=== PATIENT | female | born 1940 | race American Indian/Alaskan Native ===

== ENCOUNTER 2017-01-26 18:27 | Emergency (ER) | payer MEDICARE, OTHER ==
[2017-01-26 18:28] VITALS: BMI 33.0
[2017-01-26 21:50] LABS: BASO % 0.4 % (0.0-2.0); EOS # 0.1 K/uL (0.0-0.7); EOS % 2.3 % (0.0-4.0); HEMATOCRIT 34.9 % (34.0-47.0); LYMPH # 2.5 K/uL (1.0-4.3); LYMPH % 46.6 % (20.0-40.0); MEAN CELL VOLUME 98.1 fL (81.0-99.0); MEAN CORPUSCULAR HEMOGLOBIN 32.6 pg (27.0-31.0); MEAN CORPUSCULAR HGB CONC 33.2 g/dL (33.0-37.0); MEAN PLATELET VOLUME 8.7 fL (7.2-11.7); MONO # 0.8 K/uL (0.0-0.8); MONO % 14.8 % (0.0-10.0); RED CELL DISTRIBUTION WIDTH 14.3 % (11.5-14.5); WHITE BLOOD COUNT 5.4 K/uL (4.8-10.8)
[2017-01-26 21:55] LABS: RBC URINE 1 /hpf (0-3); URINE BILIRUBIN NEGATIVE (NEGATIVE); URINE BLOOD NEGATIVE (NEGATIVE); URINE COLOR Yellow (YELLOW); URINE GLUCOSE (UA) NORMAL (Normal); URINE KETONE NEGATIVE (NEGATIVE); URINE LEUKOCYTE ESTERASE TRACE Leu/uL (Negative); URINE PROTEIN NEGATIVE (NEGATIVE); URINE UROBILINOGEN NORMAL mg/dL (0.2-1.0); WBC URINE < 1 /hpf (0-5)
[2017-01-26 21:57] LABS: INR 1.1
[2017-01-26 22:17] LABS: CHLORIDE 101 mmol/L (98-107)
[2017-01-26 22:18] LABS: POTASSIUM 3.9 mmol/L (3.6-5.2); SODIUM 138 mmol/L (132-148)
[2017-01-26 22:20] LABS: BILIRUBIN,TOTAL 0.5 mg/dL (0.2-1.3); CARBON DIOXIDE 30 mmol/L (22-30); CHOLESTEROL 170 mg/dL (0-199); GFR AFRICAN-AMERICAN > 60; TOTAL PROTEIN 7.1 g/dL (6.3-8.3)
[2017-01-26 22:21] LABS: ALKALINE PHOSPHATASE 76 U/L (38-126); ALT/SGPT 31 U/L (9-52); AST/SGOT 37 U/L (14-36); BLOOD UREA NITROGEN 15 mg/dL (7-17); CALCIUM 9.3 mg/dl (8.6-10.4); GLUCOSE,RANDOM 81 mg/dL (65-105)
--- NOTE | 2017-01-26 22:32 | C.PDOC ---
History Of Present Illness 76 year old female presents to the ED with complaints of dizziness for two days who has had multiple prior evaluations for similar complaints. Patient denies taking any dizziness medications at home, vertigo, or vomiting. Time Seen by Provider: 01/26/17 21:30 Chief Complaint (Nursing): Dizziness/Lightheaded History Per: Patient History/Exam Limitations: no limitations Onset/Duration Of Symptoms: Days (2 days ) Current Symptoms Are (Timing): Still Present Associated Symptoms Preceding Syncopal Episode: denies: Vertigo Seizure Or Post-ictal Symptoms: None Possible Causative Factor(s): denies: Vertigo Fall Associated With With Symptoms: No Recent travel outside of the [place]: No Additional History Per: Prior Records Past Medical History Reviewed: Historical Data, Nursing Documentation, Vital Signs Vital Signs: Last Vital Signs Temp 98.1 F 01/26/17 23:45 Pulse 64 01/26/17 23:45 Resp 15 01/26/17 23:45 BP 126/63 01/26/17 23:45 Pulse Ox 95 01/26/17 23:45 - Medical History PMH: Anxiety, Arthritis, CAD, Depression, Diabetes, Gastritis, Gastrointestinal Ulcer, Hiatal Hernia, HTN, Hypercholesterolemia Surgical History: Cholecystectomy, Coronary Stent, Endoscopy - [facility] Procedures ESOPHAGOGASTRODUODENOSCOPY [EGD] W/CLOSED BIOPSY (03/05/14) OTHER SKIN & SUBQ I D (08/25/14) Family History: States: Unknown Family Hx - Social History Hx Tobacco Use: No Hx Alcohol Use: No Hx Substance Use: No - Immunization History Hx Tetanus Toxoid Vaccination: No Hx Influenza Vaccination: No Hx Pneumococcal Vaccination: No Review Of Systems Constitutional: Negative for: Fever, Chills, Sweats Eyes: Negative for: Vision Change Cardiovascular: Negative for: Chest Pain, Palpitations Gastrointestinal: Negative for: Nausea, Vomiting, Abdominal Pain, Diarrhea Neurological: Positive for: Dizziness. Negative for: Weakness, Numbness, Headache Physical Exam - Physical Exam Appears: Non-toxic, No Acute Distress Skin: Warm, Dry Head: Atraumatic, Other (no provoked dizziness with head movement ) Eye(s): bilateral: Normal Inspection, PERRL, EOMI Oral Mucosa: Moist Neck: Supple Chest: Symmetrical Cardiovascular: Rhythm Regular Respiratory: No Rales, No Rhonchi, No Stridor, No Wheezing Gastrointestinal/Abdominal: Soft, No Tenderness, No Distention, No Guarding, No Rebound Extremity: Normal ROM, No Tenderness Neurological/Psych: Oriented x3 ED Course And Treatment - Laboratory Results Result Diagrams: 01/26/17 21:46 01/26/17 21:46 Lab Interpretation: Normal (trop, UA neg.) ECG: Interpreted By Me ECG Rhythm: Sinus Rhythm ECG Interpretation: Normal Rate From EC O2 Sat by Pulse Oximetry: 96 (room air ) - Radiology CXR: Interpreted by Me CXR Interpretation: Yes: No Acute Disease - Other Rad head CT X-Ray: Interpreted by Me (no acute findings.), Read By Radiologist Progress Note: meclizine and IV fluids Reevaluation Time: 23:59 Reassessment Condition: Improved Medical Decision Making Medical Decision Making: mild dizzines, non-vertiginous continue meclizine PRN and neuro f/u. Disposition Doctor Will See Patient In The: Office Counseled Patient/Family Regarding: Studies Performed, Diagnosis - Disposition Disposition: HOME/ ROUTINE Disposition Time: 00:00 Condition: GOOD - Clinical Impression Clinical Impression: Dizziness - Scribe Statement The provider has reviewed the documentation as recorded by the Scribe Kim Varner All medical record entries made by the Elizaibnav were at my direction and personally dictated by me. I have reviewed the chart and agree that the record accurately reflects my personal performance of the history, physical exam, medical decision making, and the department course for this patient. I have also personally directed, reviewed, and agree with the discharge instructions and disposition.
--- NOTE | 2017-01-26 23:12 | CT ---
EXAM: CT Head Without Intravenous Contrast CLINICAL HISTORY: 76 years old, female; Pain; Headache; Additional info: Hand/dizzy x 2 days, ? vertebral TECHNIQUE: Axial computed tomography images of the head/brain without intravenous contrast. This CT exam was performed using one or more of the following dose reduction techniques: automated exposure control, adjustment of the mA and/or kV according to patient size, and/or use of iterative reconstruction technique. COMPARISON: No relevant prior studies available. FINDINGS: Brain: There is mild diminished density of the white matter bilaterally, consistent with mild microangiopathy. There is no evidence of intracranial hemorrhage. No evidence of acute territorial infarction. No edema. Ventricles: Unremarkable. No ventriculomegaly. Bones/joints: Unremarkable. No acute fracture. Soft tissues: Unremarkable. Sinuses: Unremarkable as visualized. No acute sinusitis. Mastoid air cells: Unremarkable as visualized. No mastoid effusion. IMPRESSION: 1. No evidence for acute intracranial abnormality or displaced calvarial fracture. 2. Additional incidental and/or chronic findings as described.
[2017-01-26 23:46] VITALS: BP 126/63; PULSE 64; RESP 15; TEMP 98.1
[2017-01-27 00:01] VITALS: O2SAT 96
--- NOTE | 2017-01-27 13:59 | RAD ---
HISTORY: dizzy COMPARISON: 09/15/2016 FINDINGS: LUNGS: No active pulmonary disease. PLEURA: No significant pleural effusion identified, no pneumothorax apparent. CARDIOVASCULAR: Normal. OSSEOUS STRUCTURES: No significant abnormalities. VISUALIZED UPPER ABDOMEN: Normal. OTHER FINDINGS: None. IMPRESSION: No active disease.
== END 2017-01-27 00:10 | disposition home or self-care (01) ==
LOC: C.ER 18:27
DX: R42 Dizziness and giddiness (principal); I25.10 Atherosclerotic heart disease of native coronary artery without angina pectoris; I10 Essential (primary) hypertension; E11.9 Type 2 diabetes mellitus without complications

== ENCOUNTER 2017-03-01 08:10 | Emergency (ER) | payer MEDICARE, OTHER ==
[2017-03-01 08:19] VITALS: BMI 35.5
[2017-03-01 08:32] VITALS: TEMP 97.4
[2017-03-01 09:07] LABS: RBC URINE 1 /hpf (0-3); URINE BACTERIA RARE (<OCC); URINE BILIRUBIN NEGATIVE (NEGATIVE); URINE BLOOD NEGATIVE (NEGATIVE); URINE COLOR Yellow (YELLOW); URINE GLUCOSE (UA) NORMAL (Normal); URINE KETONE NEGATIVE (NEGATIVE); URINE PROTEIN NEGATIVE (NEGATIVE); URINE UROBILINOGEN NORMAL mg/dL (0.2-1.0); WBC URINE 5 /hpf (0-5)
[2017-03-01 09:09] LABS: EOS # 0.1 K/uL (0.0-0.7); EOS % 1.9 % (0.0-4.0); HEMATOCRIT 33.5 % (34.0-47.0); LYMPH # 2.2 K/uL (1.0-4.3); LYMPH % 44.8 % (20.0-40.0); MONO # 0.9 K/uL (0.0-0.8); MONO % 17.3 % (0.0-10.0); NRBC % 0.1 % (0.0-2.0); RED CELL DISTRIBUTION WIDTH 14.3 % (11.5-14.5); WHITE BLOOD COUNT 4.9 K/uL (4.8-10.8)
[2017-03-01 09:10] LABS: URINE LEUKOCYTE ESTERASE 1+ Leu/uL (Negative)
[2017-03-01 09:16] LABS: CHLORIDE 99 mmol/L (98-107)
[2017-03-01 09:17] LABS: INR 1.1; POTASSIUM 4.2 mmol/L (3.6-5.2); SODIUM 139 mmol/L (132-148)
[2017-03-01 09:18] LABS: GFR AFRICAN-AMERICAN > 60
[2017-03-01 09:19] LABS: ALB/GLOB RATIO 1.1 (1.0-2.1); ALKALINE PHOSPHATASE 71 U/L (38-126); ALT/SGPT 42 U/L (9-52); AST/SGOT 30 U/L (14-36); BILIRUBIN,TOTAL 0.5 mg/dL (0.2-1.3); BLOOD UREA NITROGEN 18 mg/dL (7-17); CARBON DIOXIDE 29 mmol/L (22-30); GLUCOSE,RANDOM 81 mg/dL (65-105); TOTAL PROTEIN 6.8 g/dL (6.3-8.3)
[2017-03-01 09:20] LABS: CALCIUM 8.7 mg/dl (8.6-10.4)
--- NOTE | 2017-03-01 09:29 | C.PDOC ---
History Of Present Illness 76 y/o female, with PMHx of HTN, diabetes, hyperlipidemia, presents to the ED for evaluation of generalized body aches, and mild dizziness since last night. Pt has been evaluated here multiple times in the past with similar complaints. Otherwise, denies any specific pain, nausea, vomiting, headache, fever, or any other complaints at this time. Time Seen by Provider: 03/01/17 08:38 Chief Complaint (Nursing): Back Pain History Per: Patient History/Exam Limitations: no limitations Onset/Duration Of Symptoms: Days (1) Current Symptoms Are (Timing): Still Present Quality Of Discomfort: Aching Previous Symptoms: None Associated Symptoms: None. denies: New Weakness, New Numbness Exacerbating Factor(s): Nothing Recent travel outside of the [place]: No Additional History Per: Patient Past Medical History Reviewed: Historical Data, Nursing Documentation, Vital Signs Vital Signs: Last Vital Signs Temp 97.4 F L 03/01/17 08:28 Pulse 73 03/01/17 09:56 Resp 20 03/01/17 09:56 BP 123/64 03/01/17 09:56 Pulse Ox 98 03/01/17 09:56 - Medical History PMH: Anxiety, Arthritis, CAD, Depression, Diabetes, Gastritis, Gastrointestinal Ulcer, Hiatal Hernia, HTN, Hypercholesterolemia, Pneumonia Denies: Chronic Kidney Disease Surgical History: Cholecystectomy, Coronary Stent, Endoscopy - [facility] Procedures ESOPHAGOGASTRODUODENOSCOPY [EGD] W/CLOSED BIOPSY (03/05/14) OTHER SKIN & SUBQ I D (08/25/14) Family History: States: Unknown Family Hx - Social History Hx Tobacco Use: No Hx Alcohol Use: No Hx Substance Use: No - Immunization History Hx Tetanus Toxoid Vaccination: No Hx Influenza Vaccination: No Hx Pneumococcal Vaccination: No Review Of Systems Except As Marked, All Systems Reviewed And Found Negative. Constitutional: Positive for: Other (generalized body aches). Negative for: Fever, Chills Eyes: Negative for: Vision Change Cardiovascular: Negative for: Chest Pain Respiratory: Negative for: Shortness of Breath Gastrointestinal: Negative for: Nausea, Vomiting, Abdominal Pain Skin: Negative for: Rash Neurological: Positive for: Dizziness. Negative for: Weakness, Numbness, Headache Physical Exam - Physical Exam Appears: Non-toxic, No Acute Distress Skin: Normal Color, Warm, Dry Head: Atraumatic, Normacephalic Eye(s): bilateral: Normal Inspection, PERRL, EOMI Cardiovascular: Rhythm Regular, No Murmur Respiratory: Normal Breath Sounds, No Rales, No Rhonchi, No Wheezing Gastrointestinal/Abdominal: Soft, No Tenderness Extremity: Bilateral: Atraumatic, Normal ROM Neurological/Psych: Oriented x3, Normal Speech, Normal Cognition, Other (Neuro intact) ED Course And Treatment - Laboratory Results Result Diagrams: 03/01/17 09:05 03/01/17 09:05 ECG: Interpreted By Me, Viewed By Me ECG Rhythm: Sinus Rhythm ECG Interpretation: No Acute Changes Interpretation Of ECG: No ST wave changes. Rate From EC (bpm) O2 Sat by Pulse Oximetry: 100 (RA) Pulse Ox Interpretation: Normal Medical Decision Making Medical Decision Making: r/o cardiac, metabolic, infectious etiology -EKG, CXR, blood work, urinalysis ordered and reviewed. Pt was given Toradol. On reassessment, pt is sleeping comfortably, no acute distress. Lab work was unremarkable. Pt feels comfortable being discharged home. cxr neg as read by me. pt katt rojas nad, neuro intact. stable for d/c. Disposition - Disposition Disposition: HOME/ ROUTINE Disposition Time: 10:00 Condition: STABLE Additional Instructions: please follow up with your doctor return to er with worsening symptoms or concerns. Instructions: Weakness (ED) Forms: [facility] (Polish) - Clinical Impression Clinical Impression: Weakness - Scribe Statement The provider has reviewed the documentation as recorded by the Scribe Karl Rome All medical record entries made by the Scribe were at my direction and personally dictated by me. I have reviewed the chart and agree that the record accurately reflects my personal performance of the history, physical exam, medical decision making, and the department course for this patient. I have also personally directed, reviewed, and agree with the discharge instructions and disposition.
[2017-03-01 09:57] VITALS: BP 123/64; PULSE 73; RESP 20
--- NOTE | 2017-03-01 11:08 | RAD ---
PROCEDURE: CHEST RADIOGRAPH, 1 VIEW HISTORY: Chest pain COMPARISON: 01/26/2017 FINDINGS: LUNGS: The lungs are well inflated and clear. PLEURA: No pneumothorax or pleural fluid seen. CARDIOVASCULAR: The heart is normal in size. Atherosclerotic aortic arch calcifications are present. . OSSEOUS STRUCTURES: There is severe dextroscoliosis in the thoracic spine. VISUALIZED UPPER ABDOMEN: Normal. OTHER FINDINGS: None. IMPRESSION: No active pulmonary number disease.
[2017-03-01 12:01] VITALS: O2SAT 100
--- NOTE | 2017-03-04 06:44 | CARD ---
APPROVED REPORT EKG Measurement Heart [id number] <Conclusion> Normal sinus rhythm Normal ECG
== END 2017-03-01 10:11 | disposition home or self-care (01) ==
LOC: C.ER 08:10
DX: R53.1 Weakness (principal)
CPT/HCPCS: 71010; 80053; 81001; 82948; 83690; 84484; 85025; 85610; 85730; 93005; 96374; 99285; J1885

== ENCOUNTER 2017-04-20 12:36 | Emergency (ER) | payer MEDICARE, OTHER ==
[2017-04-20 12:36] VITALS: BMI 35.5
[2017-04-20 12:57] VITALS: RESP 18; O2SAT 99
[2017-04-20] MEDS ORDERED: Lidocaine 5% Patch TD STA (13:59)
[2017-04-20] MEDS ORDERED: Aluminum Hydroxide/Magnesium Hydroxide Susp (30 mL) PO STA (14:00)
--- NOTE | 2017-04-20 14:04 | C.PDOC ---
History Of Present Illness 76 year old female with HTN and diabetes presents to the ED with complaints of "pain all over" for approximately four weeks. As per patient's daughter, patient had an MRI of the right shoulder performed on March 22, 2017 for right shoulder pain that showed a tear. Patient was prescribed medications but is unclear about what specific medications. She has taken ibuprofen with no relief and has not taken medication today. Patient denies injury, chest pain, or shortness of breath. Pain mainly to right shoulder, radiating up to neck. Pain with movement, turning neck. Time Seen by Provider: 04/20/17 13:33 Chief Complaint (Nursing): Pain, Chronic History Per: Patient, Family (daughter) History/Exam Limitations: no limitations Onset/Duration Of Symptoms: Persistent (4 weeks ) Current Symptoms Are (Timing): Still Present Reports Recently: Treated By A Physician Recent travel outside of the [place]: No Past Medical History Reviewed: Historical Data, Nursing Documentation, Vital Signs Vital Signs: Last Vital Signs Temp 97.9 F 04/20/17 12:56 Pulse 70 04/20/17 12:56 Resp 18 04/20/17 12:56 BP 139/84 04/20/17 12:56 Pulse Ox 99 04/20/17 15:39 - Medical History PMH: Anxiety, Arthritis, CAD, Depression, Diabetes, Gastritis, Gastrointestinal Ulcer, Hiatal Hernia, HTN, Hypercholesterolemia, Pneumonia Surgical History: Cholecystectomy, Coronary Stent, Endoscopy - [facility] Procedures ESOPHAGOGASTRODUODENOSCOPY [EGD] W/CLOSED BIOPSY (03/05/14) OTHER SKIN & SUBQ I D (08/25/14) Family History: States: Unknown Family Hx - Social History Hx Tobacco Use: No Hx Alcohol Use: No Hx Substance Use: No - Immunization History Hx Tetanus Toxoid Vaccination: No Hx Influenza Vaccination: No Hx Pneumococcal Vaccination: No Review Of Systems Constitutional: Negative for: Fever, Chills Cardiovascular: Negative for: Chest Pain, Palpitations Respiratory: Negative for: Cough, Shortness of Breath Gastrointestinal: Negative for: Nausea, Vomiting, Abdominal Pain, Diarrhea Musculoskeletal: Positive for: Neck Pain, Shoulder Pain (right shoulder pain radiating to right side of neck and back ), Back Pain Neurological: Negative for: Numbness Physical Exam - Physical Exam Appears: Non-toxic, No Acute Distress Skin: Warm, Dry Head: Atraumatic, Normacephalic Oral Mucosa: Moist Neck: Supple Chest: Symmetrical, No Deformity Cardiovascular: Rhythm Regular, No Murmur Respiratory: Normal Breath Sounds, No Rales, No Rhonchi, No Wheezing Back: Muscle Spasm (spasmodic to anterior and posterior area of right shoulder and trapezius muscle ) Extremity: Normal ROM, Tenderness (Tenderness along trapezius muscle ), Capillary Refill (good capillary refill, less than two seconds ), No Deformity Neurological/Psych: Oriented x3 ED Course And Treatment O2 Sat by Pulse Oximetry: 99 (room air ) Progress Note: Patient was given Tylenol, Motrin, Valium, and Lidoderm was applied. Medical Decision Making Medical Decision Making: Patient presented MR report of right shoulder performed on 04/01/[address] Jaci Barkley. Impression is as follows: "1. Full-thickness tear of the distal supraspinatus with myotendinous retraction to the proximal humeral head and moderate muscle atrophy. 2. Moderate glenohumeral arthropathy with accompanying synovitis. 3. 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 Prescriptions: diaZEpam [Valium] 5 mg PO TID #9 tab Lidocaine 5% [Lidoderm] 1 ea TD DAILY #2 patch traMADol [Ultram] 25 mg PO STAT #9 tab Instructions: Muscle Spasm (ED) Forms: [facility] (Mauritian) - POA Present On Arrival: None - Clinical Impression Clinical Impression: Muscle spasm - Scribe Statement The provider has reviewed the documentation as recorded by the Scribnav Varner All medical record entries made by the Scribe were at my direction and personally dictated by me. I have reviewed the chart and agree that the record accurately reflects my personal performance of the history, physical exam, medical decision making, and the department course for this patient. I have also personally directed, reviewed, and agree with the discharge instructions and disposition.
[2017-04-20] MEDS ORDERED: Lidocaine 5% Patch TD ONE (14:05)
[2017-04-20] MEDS ORDERED: Aluminum Hydroxide/Magnesium Hydroxide Susp (30 mL) ONE (14:06)
[2017-04-20 16:46] VITALS: BP 142/85; PULSE 60; TEMP 97.7
== END 2017-04-20 16:59 | disposition home or self-care (01) ==
LOC: C.ER 12:36
DX: M62.838 Other muscle spasm (principal)

== ENCOUNTER 2017-08-07 15:23 | Observation (INO) | payer OTHER ==
[2017-08-07 15:23] VITALS: BMI 35.5
--- NOTE | 2017-08-07 16:15 | C.PDOC ---
History Of Present Illness 76 year old female presents to the ED for evaluation of chest pain which began yesterday. Patient states her pain has slightly improved since yesterday, but notes she still has pain and would like to be evaluated. Patient has cardiac history and underwent angioplasty. She denies shortness of breath, cough, nausea , vomiting, extremity numbness/weakness. PMD: Dr. Barkley Time Seen by Provider: 08/07/17 15:48 Chief Complaint (Nursing): Chest Pain History Per: Patient History/Exam Limitations: no limitations Onset/Duration Of Symptoms: Hrs Current Symptoms Are (Timing): Better Quality: "Pain" Associated Symptoms: denies: Nausea Additional History Per: Patient Past Medical History Reviewed: Historical Data, Nursing Documentation, Vital Signs Vital Signs: Last Vital Signs Temp 98.5 F 08/07/17 15:37 Pulse 62 08/07/17 17:58 Resp 20 08/07/17 17:58 BP 140/70 08/07/17 17:58 Pulse Ox 98 08/07/17 18:36 - Medical History PMH: Anxiety, Arthritis, CAD, Depression, Diabetes, Gastritis, Gastrointestinal Ulcer, Hiatal Hernia, HTN, Hypercholesterolemia, Pneumonia Denies: Chronic Kidney Disease Surgical History: Cholecystectomy, Coronary Stent, Endoscopy - [facility] Procedures ESOPHAGOGASTRODUODENOSCOPY [EGD] W/CLOSED BIOPSY (03/05/14) OTHER SKIN & SUBQ I D (08/25/14) Family History: States: Unknown Family Hx - Social History Hx Tobacco Use: No Hx Alcohol Use: No Hx Substance Use: No - Immunization History Hx Tetanus Toxoid Vaccination: No Hx Influenza Vaccination: No Hx Pneumococcal Vaccination: No Review Of Systems Cardiovascular: Positive for: Chest Pain Respiratory: Negative for: Cough, Shortness of Breath Gastrointestinal: Negative for: Nausea, Vomiting Neurological: Negative for: Weakness, Numbness Physical Exam - Physical Exam Appears: Non-toxic, No Acute Distress Skin: Normal Color, Warm, Dry Head: Atraumatic, Normacephalic Eye(s): bilateral: Normal Inspection Oral Mucosa: Moist Throat: Normal, No Erythema, No Exudate Neck: Supple Chest: Symmetrical, No Deformity, No Tenderness Cardiovascular: Rhythm Regular, No Murmur Respiratory: Normal Breath Sounds, No Rales, No Rhonchi, No Wheezing Extremity: Normal ROM, Capillary Refill (less than 2 seconds ) Neurological/Psych: Oriented x3, Normal Speech, Normal Cognition Gait: Steady ED Course And Treatment - Laboratory Results Result Diagrams: 08/07/17 16:32 08/07/17 16:32 ECG: Interpreted By Me, Viewed By Me ECG Rhythm: Sinus Rhythm Interpretation Of ECG: Sinus rhythm at rate 80bpm. Diffuse ST changes noted. Rate From EC O2 Sat by Pulse Oximetry: 98 (on RA) Pulse Ox Interpretation: Normal Progress Note: Bloodwork, Urinalysis, CXR, and EKG ordered and reviewed. Aspirin PO administered. Called at 18:10 - service give cell phone number to call: no answer,. Called at 18:35 - no answer. Called 's cell phone at 18:40, ask us to call him back in 5 min. Spoke with who requested to admit patient to . Spoke with , who accepted patient to Tele for observation. Disposition - Disposition Disposition: HOSPITALIZED Disposition Time: 18:45 Condition: FAIR Forms: Circular (Cymraes) - Clinical Impression Clinical Impression: Chest pain - PA / PRINCIPAL SYSTEM SOFTWARE ENGINEER / Resident Statement MD/DO has reviewed & agrees with the documentation as recorded. - Scribe Statement The provider has reviewed the documentation as recorded by the Scribe (Shey Rome) All medical record entries made by the Scribe were at my direction and personally dictated by me. I have reviewed the chart and agree that the record accurately reflects my personal performance of the history, physical exam, medical decision making, and the department course for this patient. I have also personally directed, reviewed, and agree with the discharge instructions and disposition. Decision To Admit - Pt Status Changed To: Hospital Disposition Of: Observation - . Bed Request Type: Telemetry Admitting Physician: Jacques Beth Patient Diagnosis: Chest pain
[2017-08-07 16:48] LABS: BASO % 0.5 % (0.0-2.0); EOS # 0.1 K/uL (0.0-0.7); EOS % 1.2 % (0.0-4.0); HEMOGLOBIN 11.5 g/dL (11.0-16.0); LYMPH # 2.1 K/uL (1.0-4.3); LYMPH % 39.4 % (20.0-40.0); MEAN CORPUSCULAR HEMOGLOBIN 31.9 pg (27.0-31.0); MEAN CORPUSCULAR HGB CONC 32.2 g/dL (33.0-37.0); MONO # 0.6 K/uL (0.0-0.8); MONO % 10.6 % (0.0-10.0); NEUT # 2.5 K/uL (1.8-7.0); NEUT % 48.3 % (50.0-75.0); NRBC % 0.2 % (0.0-2.0); RBC 3.62 Mil/uL (3.80-5.20); RED CELL DISTRIBUTION WIDTH 15.6 % (11.5-14.5); WHITE BLOOD COUNT 5.2 K/uL (4.8-10.8)
[2017-08-07 16:54] LABS: INR 1.1; PROTHROMBIN TIME 12.8 SECONDS (9.7-12.2)
--- NOTE | 2017-08-07 16:56 | RAD ---
PROCEDURE: CHEST RADIOGRAPH, 1 VIEW HISTORY: CP COMPARISON: 03/01/2017 FINDINGS: LUNGS: Clear. PLEURA: No pneumothorax or pleural fluid seen. CARDIOVASCULAR: Normal. OSSEOUS STRUCTURES: No significant abnormalities. VISUALIZED UPPER ABDOMEN: Normal. OTHER FINDINGS: None. IMPRESSION: No active disease.
[2017-08-07 17:07] LABS: ALB/GLOB RATIO 1.1 (1.0-2.1); ALBUMIN 3.6 g/dL (3.5-5.0); ALT/SGPT 35 U/L (9-52); AST/SGOT 34 U/L (14-36); BLOOD UREA NITROGEN 17 mg/dL (7-17); CALCIUM 8.2 mg/dl (8.6-10.4); GFR AFRICAN-AMERICAN > 60; GFR NON-AFRICAN AMERICAN > 60
[2017-08-07 17:15] LABS: CK-MB 0.88 ng/mL (0.0-3.38)
[2017-08-07 20:06] LABS: SQUAMOUS EPITHIAL 1 /hpf (0-5); URINE BILIRUBIN NEGATIVE (NEGATIVE); URINE BLOOD NEGATIVE (NEGATIVE); URINE CLARITY Clear (Clear); URINE COLOR Yellow (YELLOW); URINE GLUCOSE (UA) NORMAL (Normal); URINE LEUKOCYTE ESTERASE TRACE Leu/uL (Negative); URINE NITRATE NEGATIVE (NEGATIVE); URINE PROTEIN NEGATIVE (NEGATIVE)
[2017-08-07 21:30] LABS: CK-MB 0.86 ng/mL (0.0-3.38)
[2017-08-07] MEDS: (Novolin R) Insulin Human Regular 100 units/ml vial SC SCH (22:46)
[2017-08-07] MEDS: Latanoprost 2.5 ml Opht Soln OU SCH (23:00)
--- NOTE | 2017-08-07 23:58 | CP.PCM.HP ---
History of Present Illness - History of Present Illness History of Present Illness: CC: chest pain HPI: Monicaderly 76 year old AA female with h/o HTN, CAD, stents done several years ago, DM presents to the ED for evaluation of chest pain on ledt side which began yesterday. Patient states her pain has slightly improved since yesterday, but notes she still has pain and would like to be evaluated. Patient has cardiac history and underwent angioplasty. She denies shortness of breath, cough, nausea, vomiting, extremity numbness/weakness. Present on Admission - Present on Admission Any Indicators Present on Admission: Yes Review of Systems - Review of Systems Systems not reviewed;Unavailable: Acuity of Condition - Constitutional Constitutional: Fatigue, Lethargy - EENT Eyes: absent: As Per HPI, Blind Spots, Blurred Vision, Change in Vision, Decreased Night Vision, Diplopia, Discharge, Dry Eye, Exophthalmos, Floaters, Irritation, Itchy Eyes, Loss of Peripheral Vision, Pain, Photophobia, Requires Corrective Lenses, Sees Flashes, Spots in Vision, Tunnel Vision, Other Visual Disturbances, Loss of Vision, Other Nose/Mouth/Throat: absent: As Per HPI, Epistaxis, Nasal Congestion, Nasal Discharge, Nasal Obstruction, Nasal Trauma, Nose Pain, Post Nasal Drip, Sinus Pain, Sinus Pressure, Bleeding Gums, Change in Voice, Dental Pain, Dry Mouth, Dysphagia, Halitosis, Hoarsness, Lip Swelling, Mouth Lesions, Mouth Pain, Odynophagia, Sore Throat, Throat Swelling, Tongue Swelling, Facial Pain, Neck Pain, Neck Mass, Other - Cardiovascular Cardiovascular: Chest Pain - Respiratory Respiratory: absent: As Per HPI, Cough, Dyspnea, Hemoptysis, Dyspnea on Exertion , Wheezing, Snoring, Stridor, Pain on Inspiration, Chest Congestion, Excessive Mucous Production, Change in Mucous Color, Pain with Coughing, Other - Gastrointestinal Gastrointestinal: absent: As Per HPI, Abdominal Pain, Belching, Bloating, Change in Bowel Habits, Change in Stool Character, Coffee Ground Emesis, Constipation, Cramping, Diarrhea, Dyspepsia, Dysphagia, Early Satiety, Excessive Flatus, Fecal Incontinence, Heartburn, Hematemesis, Hematochezia, Loose Stools, Melena, Nausea, Odynophagia, Temesmus, Vomiting, Other - Genitourinary Genitourinary: absent: As Per HPI, Change in Urinary Stream, Difficulty Urinating, Dysuria, Flank Pain, Hematuria, Pyuria, Nocturia, Urinary Incontinence, Urinary Frequency, Urinary Hesitance, Urinary Urgency, Voiding Freq/Small Amts, Freq UTI, Hx Renal/Bladder Calculi, Hx /Renal Surgery, Bladder Distension, Other Past Patient History - Infectious Disease Hx of Infectious Diseases: None - Past Medical History & Family History Past Medical History?: Yes - Past Social History Smoking Status: Never Smoked - CARDIAC Hx Hypercholesterolemia: Yes Hx Hypertension: Yes - PULMONARY Hx Pneumonia: Yes - NEUROLOGICAL Hx Neurological Disorder: No - HEENT Hx HEENT Problems: Yes Hx Cataracts: Yes - RENAL Hx Chronic Kidney Disease: No - ENDOCRINE/METABOLIC Hx Endocrine Disorders: Yes Hx Diabetes Mellitus Type 2: Yes - HEMATOLOGICAL/ONCOLOGICAL Hx Blood Disorders: No - INTEGUMENTARY Hx Dermatological Problems: No - MUSCULOSKELETAL/RHEUMATOLOGICAL Hx Arthritis: Yes - GASTROINTESTINAL Hx Gastritis: Yes - GENITOURINARY/GYNECOLOGICAL Hx Genitourinary Disorders: No - PSYCHIATRIC Hx Anxiety: Yes Hx Depression: Yes Hx Substance Use: No - SURGICAL HISTORY Hx Cholecystectomy: Yes Hx Coronary Stent: Yes - ANESTHESIA Hx Anesthesia: Yes Hx Anesthesia Reactions: No Meds Allergies/Adverse Reactions: Allergies Allergy/AdvReac Type Severity Reaction Status Date / Time No Known Allergies Allergy Verified 04/20/17 12:43 Physical Exam - Constitutional Appears: No Acute Distress - Head Exam Head Exam: ATRAUMATIC, NORMAL INSPECTION, NORMOCEPHALIC - Eye Exam Eye Exam: EOMI, Normal appearance, PERRL Pupil Exam: NORMAL ACCOMODATION, PERRL - ENT Exam ENT Exam: Mucous Membranes Moist, Normal Exam - Cardiovascular Exam Cardiovascular Exam: REGULAR RHYTHM - GI/Abdominal Exam GI & Abdominal Exam: Normal Bowel Sounds, Soft. absent: Tenderness - Rectal Exam Rectal Exam: Deferred - Neurological Exam Neurological exam: Alert, CN II-XII Intact, Normal Gait, Oriented x3, Reflexes Normal - Psychiatric Exam Psychiatric exam: Normal Affect, Normal Mood - Skin Skin Exam: Dry, Intact, Normal Color, Warm Results - Vital Signs Recent Vital Signs: Last Vital Signs Temp 97.3 F L 08/07/17 22:12 Pulse 76 08/07/17 23:34 Resp 20 08/07/17 22:12 BP 156/83 H 08/07/17 22:15 Pulse Ox 96 08/07/17 22:12 - Labs Result Diagrams: 08/07/17 16:32 08/07/17 16:32 Labs: Laboratory Results - last 24 hr 08/07/17 08/07/17 08/07/17 16:32 16:32 16:32 WBC 5.2 RBC 3.62 L Hgb 11.5 Hct 35.8 MCV 99.0 D MCH 31.9 H MCHC 32.2 L RDW 15.6 H Plt Count 191 MPV 8.0 Neut % (Auto) 48.3 L Lymph % (Auto) 39.4 [place] % (Auto) 10.6 H Eos % (Auto) 1.2 Baso % (Auto) 0.5 Neut # 2.5 Lymph # 2.1 [place] # 0.6 Eos # 0.1 Baso # 0.0 PT 12.8 H INR 1.1 APTT 26 Sodium 135 Potassium 3.5 L Chloride 102 Carbon Dioxide 27 Anion Gap 9 L BUN 17 Creatinine 0.9 Est GFR ( Amer) > 60 Est GFR (Non-Af Amer) > 60 POC Glucose (mg/dL) Random Glucose 101 Calcium 8.2 L Total Bilirubin 0.6 AST 34 ALT 35 Alkaline Phosphatase 80 Total Creatine Kinase 77 CK-MB (Mass) 0.88 Troponin I Total Protein 6.8 Albumin 3.6 Globulin 3.2 Albumin/Globulin Ratio 1.1 Urine Color Urine Clarity Urine pH Ur Specific [place] Urine Protein Urine Glucose (UA) Urine Ketones Urine Blood Urine Nitrate Urine Bilirubin Urine Urobilinogen Ur Leukocyte Esterase Urine WBC (Auto) Urine RBC (Auto) Ur Squamous Epith Cells 08/07/17 08/07/17 08/07/17 17:21 19:52 21:02 WBC RBC Hgb Hct MCV MCH MCHC RDW Plt Count MPV Neut % (Auto) Lymph % (Auto) [place] % (Auto) Eos % (Auto) Baso % (Auto) Neut # Lymph # [place] # Eos # Baso # PT INR APTT Sodium Potassium Chloride Carbon Dioxide Anion Gap BUN Creatinine Est GFR ( Amer) Est GFR (Non-Af Amer) POC Glucose (mg/dL) Random Glucose Calcium Total Bilirubin AST ALT Alkaline Phosphatase Total Creatine Kinase 93 CK-MB (Mass) 0.86 Troponin I < 0.0120 < 0.0120 Total Protein Albumin Globulin Albumin/Globulin Ratio Urine Color Yellow Urine Clarity Clear Urine pH 7.0 Ur Specific [place] 1.019 Urine Protein Negative Urine Glucose (UA) Normal Urine Ketones Negative Urine Blood Negative Urine Nitrate Negative Urine Bilirubin Negative Urine Urobilinogen 4.0 H Ur Leukocyte Esterase Trace Urine WBC (Auto) 2 Urine RBC (Auto) 1 Ur Squamous Epith Cells 1 08/07/17 22:07 WBC RBC Hgb Hct MCV MCH MCHC RDW Plt Count MPV Neut % (Auto) Lymph % (Auto) [place] % (Auto) Eos % (Auto) Baso % (Auto) Neut # Lymph # [place] # Eos # Baso # PT INR APTT Sodium Potassium Chloride Carbon Dioxide Anion Gap BUN Creatinine Est GFR ( Amer) Est GFR (Non-Af Amer) POC Glucose (mg/dL) 92 Random Glucose Calcium Total Bilirubin AST ALT Alkaline Phosphatase Total Creatine Kinase CK-MB (Mass) Troponin I Total Protein Albumin Globulin Albumin/Globulin Ratio Urine Color Urine Clarity Urine pH Ur Specific [place] Urine Protein Urine Glucose (UA) Urine Ketones Urine Blood Urine Nitrate Urine Bilirubin Urine Urobilinogen Ur Leukocyte Esterase Urine WBC (Auto) Urine RBC (Auto) Ur Squamous Epith Cells Assessment & Plan (1) Chest pain Assessment and Plan: EKG Rule out CA cardiac enzymes x 3 Status: Acute (2) CAD (coronary artery disease) Status: Chronic (3) Diabetes 1.5, managed as type 2 Status: Chronic Priority: Low (4) Hypertension Status: Chronic Priority: Low
[2017-08-08 03:49] LABS: CK-MB 0.62 ng/mL (0.0-3.38)
[2017-08-08] MEDS: (Novolin R) Insulin Human Regular 100 units/ml vial SC SCH ×4 (08:34→22:00)
[2017-08-08] MEDS: Pantoprazole 40 mg EC Tab PO SCH (09:51)
[2017-08-08] MEDS: Enoxaparin 40 mg Syringe SC SCH (09:52)
[2017-08-08] MEDS: Lidocaine 5% Patch TD SCH (09:52)
[2017-08-08] MEDS ORDERED: Pantoprazole 40 mg EC Tab PO SCH (10:00)
--- NOTE | 2017-08-08 14:16 | CARD ---
APPROVED REPORT EKG Measurement Heart [id number] <Conclusion> Normal sinus rhythm Junctional ST depression, probably normal Borderline ECG
--- NOTE | 2017-08-08 19:20 | CP.PCM.CON ---
History of Present Illness - History of Present Illness History of Present Illness: 74 year old with Hx of HTN, Hyperlipidemia, CAD s/p PCI on mid LAD anbout 10 years ago, recently for CP 07/18 underwent an EST with Myoview at was with no ischemia, EF 65%, Echo no , no pericardial disease, now admitted with L sided CP and tenderness, on chronic analgesics and anxielytics No acute EKG changes, neg Enz. , 10/19 had EST with myoview neg for ischemia EF 60% Review of Systems - Review of Systems Systems not reviewed;Unavailable: Acuity of Condition - Constitutional Constitutional: Anorexia, Weakness - EENT Eyes: absent: Discharge Ears: absent: Ear Discharge Nose/Mouth/Throat: absent: Epistaxis - Cardiovascular Cardiovascular: Chest Pain. absent: Acrocyanosis, Diaphoresis, Palpitations, Syncope - Respiratory Respiratory: Dyspnea. absent: Cough, Hemoptysis - Gastrointestinal Gastrointestinal: absent: Abdominal Pain, Diarrhea, Hematochezia, Melena, Vomiting - Genitourinary Genitourinary: absent: Change in Urinary Stream - Reproductive: Female Reproductive:Female: Post Menopausal Past Patient History - Infectious Disease Hx of Infectious Diseases: None - Past Medical History & Family History Past Medical History?: Yes - Past Social History Smoking Status: Never Smoked - CARDIAC Hx Cardiac Disorders: Yes (CAD) Hx Hypercholesterolemia: Yes Hx Hypertension: Yes - PULMONARY Hx Pneumonia: Yes - NEUROLOGICAL Hx Neurological Disorder: No - HEENT Hx HEENT Problems: Yes Hx Cataracts: Yes - RENAL Hx Chronic Kidney Disease: No - ENDOCRINE/METABOLIC Hx Diabetes Mellitus Type 2: Yes - HEMATOLOGICAL/ONCOLOGICAL Hx Blood Disorders: No - INTEGUMENTARY Hx Dermatological Problems: No - MUSCULOSKELETAL/RHEUMATOLOGICAL Hx Arthritis: Yes - GASTROINTESTINAL Hx Gastritis: Yes - GENITOURINARY/GYNECOLOGICAL Hx Genitourinary Disorders: No - PSYCHIATRIC Hx Anxiety: Yes Hx Depression: Yes Hx Substance Use: No - SURGICAL HISTORY Hx Cholecystectomy: Yes Hx Coronary Stent: Yes - ANESTHESIA Hx Anesthesia: Yes Hx Anesthesia Reactions: No Meds Allergies/Adverse Reactions: Allergies Allergy/AdvReac Type Severity Reaction Status Date / Time No Known Allergies Allergy Verified 04/20/17 12:43 - Medications Medications: Current Medications Alprazolam (Xanax) 0.5 mg PO TID [facility] Last Admin: 08/08/17 17:45 Dose: 0.5 mg Aspirin (Ecotrin) 81 mg PO DAILY [facility] Last Admin: 08/08/17 09:52 Dose: 81 mg Carvedilol (Coreg) 6.25 mg PO BID [facility] Last Admin: 08/08/17 17:45 Dose: 6.25 mg Enoxaparin Sodium (Lovenox) 40 mg SC DAILY [facility] Last Admin: 08/08/17 09:52 Dose: 40 mg Insulin Human Regular (Novolin R) [address] [facility] PRN Reason: Protocol Last Admin: 08/08/17 16:56 Dose: Not Given Latanoprost (Xalatan Opht) 1 ml OU HS [facility] Last Admin: 08/07/17 23:00 Dose: 1 ml Lidocaine (Lidoderm) 1 ea TD DAILY [facility] Last Admin: 08/08/17 09:52 Dose: 1 ea Losartan Potassium (Cozaar) 50 mg PO DAILY [facility] Last Admin: 08/08/17 09:54 Dose: 50 mg Metformin HCl (Glucophage) 500 mg PO HS [facility] Last Admin: 08/07/17 22:39 Dose: 500 mg Pantoprazole Sodium (Protonix Ec Tab) 40 mg PO DAILY [facility] Last Admin: 08/08/17 09:51 Dose: 40 mg Rosuvastatin Calcium (Crestor) 20 mg PO HS [facility] Last Admin: 08/07/17 22:39 Dose: 20 mg Physical Exam - Constitutional Appears: Non-toxic - Head Exam Head Exam: ATRAUMATIC - Eye Exam Eye Exam: EOMI - ENT Exam ENT Exam: Mucous Membranes Moist - Neck Exam Neck exam: Negative for: Lymphadenopathy, Thyromegaly - Respiratory Exam Respiratory Exam: Clear to Auscultation Bilateral. absent: Rales - Cardiovascular Exam Cardiovascular Exam: REGULAR RHYTHM, Systolic Murmur - GI/Abdominal Exam GI & Abdominal Exam: Normal Bowel Sounds. absent: Organomegaly - Rectal Exam Rectal Exam: Deferred - Extremities Exam Extremities exam: Positive for: normal capillary refill. Negative for: calf tenderness - Neurological Exam Neurological exam: Alert, Oriented x3 - Psychiatric Exam Psychiatric exam: Anxious - Skin Skin Exam: Dry Results - Vital Signs Recent Vital Signs: Last Vital Signs Temp 97.3 F L 08/08/17 16:12 Pulse 70 08/08/17 16:12 Resp 20 08/08/17 16:12 BP 124/76 08/08/17 16:12 Pulse Ox 100 01/04/18 16:12 - Labs Result Diagrams: 08/07/17 16:32 08/07/17 16:32 Labs: Laboratory Results - last 24 hr 08/07/17 08/07/17 08/07/17 19:52 21:02 22:07 POC Glucose (mg/dL) 92 Total Creatine Kinase 93 CK-MB (Mass) 0.86 Troponin I < 0.0120 Urine Color Yellow Urine Clarity Clear Urine pH 7.0 Ur Specific [place] 1.019 Urine Protein Negative Urine Glucose (UA) Normal Urine Ketones Negative Urine Blood Negative Urine Nitrate Negative Urine Bilirubin Negative Urine Urobilinogen 4.0 H Ur Leukocyte Esterase Trace Urine WBC (Auto) 2 Urine RBC (Auto) 1 Ur Squamous Epith Cells 1 08/08/17 08/08/17 08/08/17 03:01 06:22 11:28 POC Glucose (mg/dL) 84 136 H Total Creatine Kinase 71 CK-MB (Mass) 0.62 Troponin I < 0.0120 Urine Color Urine Clarity Urine pH Ur Specific [place] Urine Protein Urine Glucose (UA) Urine Ketones Urine Blood Urine Nitrate Urine Bilirubin Urine Urobilinogen Ur Leukocyte Esterase Urine WBC (Auto) Urine RBC (Auto) Ur Squamous Epith Cells 08/08/17 08/08/17 16:39 16:52 POC Glucose (mg/dL) 39 L 70 Total Creatine Kinase CK-MB (Mass) Troponin I Urine Color Urine Clarity Urine pH Ur Specific [place] Urine Protein Urine Glucose (UA) Urine Ketones Urine Blood Urine Nitrate Urine Bilirubin Urine Urobilinogen Ur Leukocyte Esterase Urine WBC (Auto) Urine RBC (Auto) Ur Squamous Epith Cells Assessment & Plan (1) Recurrent angina status post percutaneous transluminal coronary angioplasty Status: Acute (2) Chest pain Status: Acute
[2017-08-08 19:54] LABS: CK-MB 0.98 ng/mL (0.0-3.38)
[2017-08-08] MEDS: Latanoprost 2.5 ml Opht Soln OU SCH (21:28)
--- NOTE | 2017-08-08 23:14 | CP.PCM.PN ---
Subjective - Date & Time of Evaluation Date of Evaluation: 08/08/17 Time of Evaluation: 20:00 - Subjective Subjective: Pt is seen and examined at bedside, 3 troponins neg, stress test done earlier this month was neg, so most likely we will discharge pt after monitoring Objective - Vital Signs/Intake and Output Vital Signs (last 24 hours): Temp Pulse Resp BP Pulse Ox 97.3 F L 74 20 124/76 100 08/08/17 16:12 08/08/17 20:00 08/08/17 16:12 08/08/17 16:12 08/08/17 16:12 Intake and Output: 08/08/17 08/09/17 18:59 06:59 Intake Total 480 800 Balance 480 800 - Medications Medications: Current Medications Alprazolam (Xanax) 0.5 mg PO TID [facility] Last Admin: 08/08/17 17:45 Dose: 0.5 mg Aspirin (Ecotrin) 81 mg PO DAILY [facility] Last Admin: 08/08/17 09:52 Dose: 81 mg Carvedilol (Coreg) 6.25 mg PO BID [facility] Last Admin: 08/08/17 17:45 Dose: 6.25 mg Enoxaparin Sodium (Lovenox) 40 mg SC DAILY [facility] Last Admin: 08/08/17 09:52 Dose: 40 mg Insulin Human Regular (Novolin R) 0 unit SC [facility] PRN Reason: Protocol Last Admin: 08/08/17 16:56 Dose: Not Given Latanoprost (Xalatan Opht) 1 ml OU HS [facility] Last Admin: 08/08/17 21:28 Dose: 1 ml Lidocaine (Lidoderm) 1 ea TD DAILY [facility] Last Admin: 08/08/17 09:52 Dose: 1 ea Losartan Potassium (Cozaar) 50 mg PO DAILY [facility] Last Admin: 08/08/17 09:54 Dose: 50 mg Metformin HCl (Glucophage) 500 mg PO HS [facility] Last Admin: 08/08/17 21:31 Dose: Not Given Pantoprazole Sodium (Protonix Ec Tab) 40 mg PO DAILY [facility] Last Admin: 08/08/17 09:51 Dose: 40 mg Rosuvastatin Calcium (Crestor) 20 mg PO HS [facility] Last Admin: 08/08/17 21:26 Dose: 20 mg - Labs Labs: 08/07/17 16:32 08/07/17 16:32 PT 12.8 SECONDS (9.7-12.2) H 08/07/17 16:32 INR 1.1 08/07/17 16:32 APTT 26 SECONDS (21-34) 08/07/17 16:32 - Constitutional Appears: No Acute Distress - Head Exam Head Exam: ATRAUMATIC, NORMAL INSPECTION, NORMOCEPHALIC - Eye Exam Eye Exam: EOMI, Normal appearance, PERRL Pupil Exam: NORMAL ACCOMODATION, PERRL - Respiratory Exam Respiratory Exam: Clear to Ausculation Bilateral, NORMAL BREATHING PATTERN - Cardiovascular Exam Cardiovascular Exam: REGULAR RHYTHM, +S1, +S2. absent: Murmur - GI/Abdominal Exam GI & Abdominal Exam: Soft, Normal Bowel Sounds. absent: Tenderness Assessment and Plan (1) Chest pain Assessment & Plan: cardiac enzymes x 3 neg stress test neg Status: Acute (2) CAD (coronary artery disease) Status: Chronic (3) Diabetes 1.5, managed as type 2 Status: Chronic (4) Hypertension Status: Chronic
[2017-08-09] MEDS: (Novolin R) Insulin Human Regular 100 units/ml vial SC SCH ×2 (08:29→13:28)
[2017-08-09 08:45] VITALS: BP 143/85; PULSE 70; RESP 20; TEMP 97.9; O2SAT 96
[2017-08-09] MEDS: Enoxaparin 40 mg Syringe SC SCH (10:55)
[2017-08-09] MEDS: Lidocaine 5% Patch TD SCH (10:55)
[2017-08-09] MEDS: Pantoprazole 40 mg EC Tab PO SCH (10:55)
--- NOTE | 2017-08-09 12:34 | CP.PCM.PN ---
Subjective - Date & Time of Evaluation Date of Evaluation: 08/09/17 Time of Evaluation: 12:00 - Subjective Subjective: Negative enzymes for [place], negative recent EST, unlikely pulmonary embolus clinically, follow-up as outpatient. Objective - Vital Signs/Intake and Output Vital Signs (last 24 hours): Temp Pulse Resp BP Pulse Ox 97.9 F 70 20 143/85 96 08/09/17 08:43 08/09/17 08:43 08/09/17 08:43 08/09/17 08:43 08/09/17 08:43 Intake and Output: 08/09/17 08/09/17 06:59 18:59 Intake Total 1000 Balance 1000 - Medications Medications: Current Medications Alprazolam (Xanax) 0.5 mg PO TID [facility] Last Admin: 08/09/17 10:55 Dose: 0.5 mg Aspirin (Ecotrin) 81 mg PO DAILY [facility] Last Admin: 08/09/17 10:55 Dose: 81 mg Carvedilol (Coreg) 6.25 mg PO BID [facility] Last Admin: 08/09/17 10:57 Dose: 6.25 mg Enoxaparin Sodium (Lovenox) 40 mg SC DAILY [facility] Last Admin: 08/09/17 10:55 Dose: 40 mg Insulin Human Regular (Novolin R) 0 unit SC [facility] PRN Reason: Protocol Last Admin: 08/09/17 08:29 Dose: Not Given Latanoprost (Xalatan Opht) 1 ml OU HS [facility] Last Admin: 08/08/17 21:28 Dose: 1 ml Lidocaine (Lidoderm) 1 ea TD DAILY [facility] Last Admin: 08/09/17 10:55 Dose: 1 ea Losartan Potassium (Cozaar) 50 mg PO DAILY [facility] Last Admin: 08/09/17 10:57 Dose: 50 mg Metformin HCl (Glucophage) 500 mg PO HS [facility] Last Admin: 08/08/17 21:31 Dose: Not Given Pantoprazole Sodium (Protonix Ec Tab) 40 mg PO DAILY [facility] Last Admin: 08/09/17 10:55 Dose: 40 mg Rosuvastatin Calcium (Crestor) 20 mg PO HS [facility] Last Admin: 08/08/17 21:26 Dose: 20 mg - Labs Labs: 08/07/17 16:32 08/07/17 16:32 PT 12.8 SECONDS (9.7-12.2) H 08/07/17 16:32 INR 1.1 08/07/17 16:32 APTT 26 SECONDS (21-34) 08/07/17 16:32 - Constitutional Appears: Non-toxic - Head Exam Head Exam: ATRAUMATIC - Eye Exam Eye Exam: EOMI - ENT Exam ENT Exam: Mucous Membranes Moist - Neck Exam Neck Exam: absent: Lymphadenopathy, Thyromegaly - Respiratory Exam Respiratory Exam: Clear to Ausculation Bilateral. absent: Rales - Cardiovascular Exam Cardiovascular Exam: REGULAR RHYTHM. absent: Murmur - GI/Abdominal Exam GI & Abdominal Exam: Normal Bowel Sounds. absent: Organomegaly - Rectal Exam Rectal Exam: Deferred - Extremities Exam Extremities Exam: Normal Capillary Refill. absent: Calf Tenderness - Neurological Exam Neurological Exam: Alert, Oriented x3 - Psychiatric Exam Psychiatric exam: Normal Mood - Skin Skin Exam: Dry Assessment and Plan (1) Recurrent angina status post percutaneous transluminal coronary angioplasty Status: Acute (2) Chest pain Status: Acute
--- NOTE | 2017-08-09 13:02 | CP.PCM.PN ---
Subjective - Date & Time of Evaluation Date of Evaluation: 08/09/17 Time of Evaluation: 12:57 - Subjective Subjective: PATIENT WAS ADMITTED FOR CHEST PAIN; AAOX3; DENIES NAUSEA AND VOMITING; DENIES CHEST PAIN OR SOB; COMPLAINING OF WEAKNESS NO SIGN OF DISTRESS NOTED Objective - Vital Signs/Intake and Output Vital Signs (last 24 hours): Temp Pulse Resp BP Pulse Ox 97.9 F 70 20 143/85 96 08/09/17 08:43 08/09/17 08:43 08/09/17 08:43 08/09/17 08:43 08/09/17 08:43 Intake and Output: 08/09/17 08/09/17 06:59 18:59 Intake Total 1000 Balance 1000 - Medications Medications: Current Medications Alprazolam (Xanax) 0.5 mg PO TID [facility] Last Admin: 08/09/17 10:55 Dose: 0.5 mg Aspirin (Ecotrin) 81 mg PO DAILY [facility] Last Admin: 08/09/17 10:55 Dose: 81 mg Carvedilol (Coreg) 6.25 mg PO BID [facility] Last Admin: 08/09/17 10:57 Dose: 6.25 mg Enoxaparin Sodium (Lovenox) 40 mg SC DAILY [facility] Last Admin: 08/09/17 10:55 Dose: 40 mg Insulin Human Regular (Novolin R) 0 unit SC [facility] PRN Reason: Protocol Last Admin: 08/09/17 08:29 Dose: Not Given Latanoprost (Xalatan Opht) 1 ml OU HS [facility] Last Admin: 08/08/17 21:28 Dose: 1 ml Lidocaine (Lidoderm) 1 ea TD DAILY [facility] Last Admin: 08/09/17 10:55 Dose: 1 ea Losartan Potassium (Cozaar) 50 mg PO DAILY [facility] Last Admin: 08/09/17 10:57 Dose: 50 mg Metformin HCl (Glucophage) 500 mg PO HS [facility] Last Admin: 08/08/17 21:31 Dose: Not Given Pantoprazole Sodium (Protonix Ec Tab) 40 mg PO DAILY [facility] Last Admin: 08/09/17 10:55 Dose: 40 mg Rosuvastatin Calcium (Crestor) 20 mg PO HS [facility] Last Admin: 08/08/17 21:26 Dose: 20 mg - Labs Labs: 08/07/17 16:32 08/07/17 16:32 PT 12.8 SECONDS (9.7-12.2) H 08/07/17 16:32 INR 1.1 08/07/17 16:32 APTT 26 SECONDS (21-34) 08/07/17 16:32 - Constitutional Appears: Well - Eye Exam Pupil Exam: PERRL - Neck Exam Neck Exam: Full ROM - Cardiovascular Exam Cardiovascular Exam: +S1, +S2 - GI/Abdominal Exam GI & Abdominal Exam: Normal Bowel Sounds - Extremities Exam Extremities Exam: Normal Capillary Refill Assessment and Plan - Assessment and Plan (Free Text) Assessment: PATIENT WAS SEEN AND EXAMINED AT THE BEDSIDE; LUNG SOUND CLEAR TNI X 3 NEG AND STRESS TEST LAST MONTH WAS NEG LAST EKG SHOW NO ACUTE CHANGE DISCUSS WITH PMD AND DR HICKS WHO CLEAR THE PATIENT FOR DC FOLLOW UP WITH DR FOSS IN A WEEK AT HIS OFFICE ----CALL HIS OFFICE FOR APPOINTMENT CONTINUE ALL YOUR HOME MEDICATIONS PER MED REC ACTIVITY TOLERATED CALL DR FOSS OR GO TO EMERGENCY ROOM IF SYMPTOMS RETURN OR WORSENING DISCUSS WITH PATIENT AND PATIENT'S DAUGHTER WHO AGREE AND VERBALIZED UNDERSTANDING
--- NOTE | 2017-08-09 23:05 | CP.PCM.DIS ---
Provider - Provider Date of Admission: 08/07/17 18:47 Attending physician: Jacques Beth MD Time Spent in preparation of Discharge (in minutes): 56 Diagnosis - Discharge Diagnosis (1) Chest pain Status: Acute (2) CAD (coronary artery disease) Status: Chronic (3) Diabetes 1.5, managed as type 2 Status: Chronic Priority: Low (4) Hypertension Status: Chronic Priority: Low Hospital Course - Lab Results Lab Results: Most Recent Lab Values WBC 5.2 K/uL (4.8-10.8) 08/07/17 16:32 RBC 3.62 Mil/uL (3.80-5.20) L 08/07/17 16:32 Hgb 11.5 g/dL (11.0-16.0) 08/07/17 16:32 Hct 35.8 % (34.0-47.0) 08/07/17 16:32 MCV 99.0 fL (81.0-99.0) D 08/07/17 16:32 MCH 31.9 pg (27.0-31.0) H 08/07/17 16:32 MCHC 32.2 g/dL (33.0-37.0) L 08/07/17 16:32 RDW 15.6 % (11.5-14.5) H 08/07/17 16:32 Plt Count 191 K/uL (130-400) 08/07/17 16:32 MPV 8.0 fL (7.2-11.7) 08/07/17 16:32 Neut % (Auto) 48.3 % (50.0-75.0) L 08/07/17 16:32 Lymph % (Auto) 39.4 % (20.0-40.0) 08/07/17 16:32 [place] % (Auto) 10.6 % (0.0-10.0) H 08/07/17 16:32 Eos % (Auto) 1.2 % (0.0-4.0) 08/07/17 16:32 Baso % (Auto) 0.5 % (0.0-2.0) 08/07/17 16:32 Neut # 2.5 K/uL (1.8-7.0) 08/07/17 16:32 Lymph # 2.1 K/uL (1.0-4.3) 08/07/17 16:32 [place] # 0.6 K/uL (0.0-0.8) 08/07/17 16:32 Eos # 0.1 K/uL (0.0-0.7) 08/07/17 16:32 Baso # 0.0 K/uL (0.0-0.2) 08/07/17 16:32 PT 12.8 SECONDS (9.7-12.2) H 08/07/17 16:32 INR 1.1 08/07/17 16:32 APTT 26 SECONDS (21-34) 08/07/17 16:32 Sodium 135 mmol/L (132-148) 08/07/17 16:32 Potassium 3.5 mmol/L (3.6-5.2) L 08/07/17 16:32 Chloride 102 mmol/L (98-107) 08/07/17 16:32 Carbon Dioxide 27 mmol/L (22-30) 08/07/17 16:32 Anion Gap 9 (10-20) L 08/07/17 16:32 BUN 17 mg/dL (7-17) 08/07/17 16:32 Creatinine 0.9 mg/dL (0.7-1.2) 08/07/17 16:32 Est GFR ( Amer) > 60 08/07/17 16:32 Est GFR (Non-Af Amer) > 60 08/07/17 16:32 POC Glucose (mg/dL) 79 mg/dL (65-110) 08/09/17 12:27 Random Glucose 101 mg/dL (65-105) 08/07/17 16:32 Calcium 8.2 mg/dl (8.6-10.4) L 08/07/17 16:32 Total Bilirubin 0.6 mg/dL (0.2-1.3) 08/07/17 16:32 AST 34 U/L (14-36) 08/07/17 16:32 ALT 35 U/L (9-52) 08/07/17 16:32 Alkaline Phosphatase 80 U/L (38-126) 08/07/17 16:32 Total Creatine Kinase 81 U/L (30-135) 08/08/17 19:27 CK-MB (Mass) 0.98 ng/mL (0.0-3.38) 08/08/17 19:27 Troponin I < 0.0120 ng/mL (0.00-0.120) 08/08/17 19:27 Total Protein 6.8 g/dL (6.3-8.3) 08/07/17 16:32 Albumin 3.6 g/dL (3.5-5.0) 08/07/17 16:32 Globulin 3.2 gm/dL (2.2-3.9) 08/07/17 16:32 Albumin/Globulin Ratio 1.1 (1.0-2.1) 08/07/17 16:32 Urine Color Yellow (YELLOW) 08/07/17 19:52 Urine Clarity Clear (Clear) 08/07/17 19:52 Urine pH 7.0 (5.0-8.0) 08/07/17 19:52 Ur Specific [place] 1.019 (1.003-1.030) 08/07/17 19:52 Urine Protein Negative mg/dL (NEGATIVE) 08/07/17 19:52 Urine Glucose (UA) Normal mg/dL (Normal) 08/07/17 19:52 Urine Ketones Negative mg/dL (NEGATIVE) 08/07/17 19:52 Urine Blood Negative (NEGATIVE) 08/07/17 19:52 Urine Nitrate Negative (NEGATIVE) 08/07/17 19:52 Urine Bilirubin Negative (NEGATIVE) 08/07/17 19:52 Urine Urobilinogen 4.0 mg/dL (0.2-1.0) H 08/07/17 19:52 Ur Leukocyte Esterase Trace Dora/uL (Negative) 08/07/17 19:52 Urine WBC (Auto) 2 /hpf (0-5) 08/07/17 19:52 Urine RBC (Auto) 1 /hpf (0-3) 08/07/17 19:52 Ur Squamous Epith Cells 1 /hpf (0-5) 08/07/17 19:52 - Hospital Course Hospital Course: PATIENT WAS SEEN AND EXAMINED AT THE BEDSIDE; LUNG SOUND CLEAR TNI X 3 NEG AND STRESS TEST LAST MONTH WAS NEG LAST EKG SHOW NO ACUTE CHANGE CLEAR THE PATIENT FOR DC FOLLOW UP WITH ME IN A WEEK AT HIS OFFICE ----CALL OFFICE FOR APPOINTMENT CONTINUE ALL YOUR HOME MEDICATIONS PER MED REC ACTIVITY TOLERATED CALL DR BETH OR GO TO EMERGENCY ROOM IF SYMPTOMS RETURN OR WORSENING DISCUSS WITH PATIENT AND PATIENT'S DAUGHTER WHO AGREE AND VERBALIZED UNDERSTANDING Discharge Exam - Head Exam Head Exam: ATRAUMATIC - Eye Exam Eye Exam: Normal appearance - ENT Exam ENT Exam: Mucous Membranes Moist - Respiratory Exam Respiratory Exam: Clear to PA & Lateral, NORMAL BREATHING PATTERN - Cardiovascular Exam Cardiovascular Exam: REGULAR RHYTHM, +S1, +S2 - GI/Abdominal Exam GI & Abdominal Exam: Normal Bowel Sounds Discharge Plan - Follow Up Plan Condition: FAIR Disposition: HOME/ ROUTINE Instructions: Chest Pain (DC), Chest Pain (GEN), Chronic Hypertension (DC), Chronic Hypertension (GEN) Additional Instructions: FOLLOW UP WITH DR BETH IN A WEEK AT HIS OFFICE ----CALL HIS OFFICE FOR APPOINTMENT CONTINUE ALL YOUR HOME MEDICATIONS PER MED REC ACTIVITY TOLERATED CALL DR BETH OR GO TO EMERGENCY ROOM IF SYMPTOMS RETURN OR WORSENING. Referrals: Jacques Beth MD [Staff Provider] - Estella Frye MD [Staff Provider] -
== END 2017-08-09 14:21 | disposition home or self-care (01) ==
LOC: C.ER 15:23 → C.9E 18:47 → C.5S 21:15
PROVIDERS: ADMIT Internal Medicine; ATTEND Internal Medicine
DX: R07.9 Chest pain, unspecified (principal); I25.10 Atherosclerotic heart disease of native coronary artery without angina pectoris; E11.9 Type 2 diabetes mellitus without complications; I10 Essential (primary) hypertension
CPT/HCPCS: 36415; 71045; 80053; 81001; 82550; 82553; 82948; 84484; 85025; 85610; 85730; 93005; 97112; 97162; 99285; G0378; G8978; G8979; J1650

== ENCOUNTER 2017-09-21 03:26 | Emergency (ER) | payer OTHER ==
[2017-09-21 03:28] VITALS: BMI 35.5
[2017-09-21] MEDS ORDERED: DiphenhydrAMINE 50 mg/ml Inj IVP STA (03:57)
--- NOTE | 2017-09-21 03:58 | C.PDOC ---
History Of Present Illness 76 year old female presents to the ED for evaluation of a headache that started this morning. Patient states she has not taking any medications for her pain. Patient states her pain is located in the back of her head and radiates towards the top. Patient denies fever, chills, nausea, vomit, dizziness, blurry vision. Chief Complaint (Nursing): Headache History Per: Patient History/Exam Limitations: no limitations Onset/Duration Of Symptoms: Hrs Current Symptoms Are (Timing): Still Present Quality: "Pain" Preceeding Symptoms: None Recent travel outside of the [place]: No Additional History Per: Patient Past Medical History Reviewed: Historical Data, Nursing Documentation, Vital Signs Vital Signs: Last Vital Signs Temp 97.7 F 09/21/17 03:35 Pulse 72 09/21/17 03:35 Resp 16 09/21/17 03:35 BP 139/69 09/21/17 03:35 Pulse Ox 100 09/21/17 04:05 - Medical History PMH: Anxiety, Arthritis, CAD, Depression, Diabetes, Gastritis, Gastrointestinal Ulcer, Hiatal Hernia, HTN, Hypercholesterolemia, Pneumonia Denies: Chronic Kidney Disease Surgical History: Cholecystectomy, Coronary Stent, Endoscopy - [facility] Procedures ESOPHAGOGASTRODUODENOSCOPY [EGD] W/CLOSED BIOPSY (03/05/14) OTHER SKIN & SUBQ I D (08/25/14) Family History: States: Unknown Family Hx - Social History Hx Tobacco Use: No Hx Alcohol Use: No Hx Substance Use: No - Immunization History Hx Tetanus Toxoid Vaccination: No Hx Influenza Vaccination: No Hx Pneumococcal Vaccination: No Review Of Systems Constitutional: Positive for: Fever, Chills Cardiovascular: Negative for: Chest Pain, Palpitations Respiratory: Negative for: Shortness of Breath Gastrointestinal: Negative for: Nausea, Vomiting, Abdominal Pain Skin: Negative for: Rash Neurological: Positive for: Headache. Negative for: Weakness, Numbness, Dizziness Physical Exam - Physical Exam Appears: Non-toxic, No Acute Distress Skin: Normal Color, Warm, Dry Head: Atraumatic, Normacephalic Eye(s): bilateral: Normal Inspection Nose: No Discharge, No Deformity Oral Mucosa: Moist Neck: Normal ROM, Supple Chest: Symmetrical Cardiovascular: Rhythm Regular, No Murmur Respiratory: Normal Breath Sounds, No Rales, No Rhonchi, No Wheezing Gastrointestinal/Abdominal: Soft, No Tenderness, No Guarding, No Rebound Extremity: Normal ROM, No Tenderness, No Deformity, No Swelling Neurological/Psych: Oriented x3, Normal Speech, Normal Cognition, Normal Motor, Normal Sensation, Other (No meningial signs) Gait: Steady ED Course And Treatment O2 Sat by Pulse Oximetry: 100 (On RA) Pulse Ox Interpretation: Normal Medical Decision Making Medical Decision Making: Impression: headache Plan: * Benadryl 25 mg IVP * Compazine 5 mg IVP * IV fluids * Toradol 15 mg IVP Disposition - Disposition Referrals: [facility] [Outside] Disposition: HOME/ ROUTINE Disposition Time: 05:07 Condition: FAIR Prescriptions: Acetaminophen/Butalbital/Caf [Fioricet] 1 tab PO TID PRN #12 tab PRN Reason: Pain, Mild (1-3) Instructions: Tension Headache Forms: [facility] (Afghan) Print Language: WOLOF - Clinical Impression Clinical Impression: Headache - Scribe Statement The provider has reviewed the documentation as recorded by the Scribe Barry Stallings All medical record entries made by the Scribe were at my direction and personally dictated by me. I have reviewed the chart and agree that the record accurately reflects my personal performance of the history, physical exam, medical decision making, and the department course for this patient. I have also personally directed, reviewed, and agree with the discharge instructions and disposition.
[2017-09-21] MEDS ORDERED: Sodium Chloride 0.9% 500 ML IV SCH (04:00)
[2017-09-21] MEDS ORDERED: DiphenhydrAMINE 50 mg/ml Inj ONE (04:15)
[2017-09-21] MEDS ORDERED: Sodium Chloride 0.9% 500 ML IV ONE (04:16)
[2017-09-21 05:10] VITALS: BP 121/75; PULSE 60; RESP 18; TEMP 97.5; O2SAT 99
== END 2017-09-21 06:00 | disposition home or self-care (01) ==
LOC: C.ER 03:26
DX: R51 Headache (principal); I10 Essential (primary) hypertension; E11.9 Type 2 diabetes mellitus without complications
CPT/HCPCS: 82948; 96361; 96374; 96375; 99285; J0780; J1200; J1885; J7040

== ENCOUNTER 2018-03-31 15:19 | Emergency (ER) | payer OTHER ==
[2018-03-31 15:19] VITALS: BMI 35.5
[2018-03-31 15:30] VITALS: RESP 18; TEMP 97.8
--- NOTE | 2018-03-31 16:06 | C.PDOC ---
History Of Present Illness 77 y/o F c PMHx HTN, CAD, s/p stent p/w R arm swelling x 2 days. Patient denies any particular trauma. Denies fever, chest pain, dyspnea, fall, nausea, vomiting , leg edema. Time Seen by Provider: 03/31/18 15:53 Chief Complaint (Nursing): Upper Extremity Problem/Injury Past Medical History Vital Signs: Last Vital Signs Temp 97.8 F 03/31/18 15:28 Pulse 86 03/31/18 17:03 Resp 18 03/31/18 15:28 BP 149/85 03/31/18 17:03 Pulse Ox 100 03/31/18 17:03 - Medical History PMH: Anxiety, Arthritis, CAD, Depression, Diabetes, Gastritis, Gastrointestinal Ulcer, Hiatal Hernia, HTN, Hypercholesterolemia, Pneumonia Denies: Chronic Kidney Disease Surgical History: Cholecystectomy, Coronary Stent, Endoscopy - [facility] Procedures ESOPHAGOGASTRODUODENOSCOPY [EGD] W/CLOSED BIOPSY (03/05/14) OTHER SKIN & SUBQ I D (08/25/14) Family History: States: Unknown Family Hx - Social History Hx Tobacco Use: No Hx Alcohol Use: No Hx Substance Use: No - Immunization History Hx Tetanus Toxoid Vaccination: No Hx Influenza Vaccination: No Hx Pneumococcal Vaccination: No Review Of Systems Except As Marked, All Systems Reviewed And Found Negative. Constitutional: Negative for: Fever Cardiovascular: Negative for: Chest Pain Physical Exam - Physical Exam Additional Physical Exam Comments: Constitutional: No acute distress. Head: Normocephalic. Atraumatic. Eyes: PERRL. ENT: Moist mucous membranes. Neck: Supple. Cardiovascular: Regular rate. Radial pulse 2+ bilaterally. Chest: No tenderness. Respiratory: Clear to auscultation bilaterally. GI: Soft. Nontender. Nondistended. Back: No CVA tenderness. Musculoskeletal: Right arm without tenderness. Does not appear discernibly edematous compared to contralateral arm. Skin: No rash. Neurologic: Alert, no focal deficit. ED Course And Treatment - Laboratory Results Result Diagrams: 03/31/18 16:13 03/31/18 16:13 O2 Sat by Pulse Oximetry: 99 Medical Decision Making Medical Decision Making: FINDINGS: LUNGS: No active pulmonary disease. PLEURA: No significant pleural effusion identified, no pneumothorax apparent. CARDIOVASCULAR: Atherosclerotic aortic calcifications. Cardiomediastinal silhouette stably enlarged. OSSEOUS STRUCTURES: Unchanged. VISUALIZED UPPER ABDOMEN: Normal. OTHER FINDINGS: None. IMPRESSION: No active disease. Doppler negative for DVT. Will discharge, f/u PMD, return to ED for worsening pain, fever, dyspnea, chest pain, or any other problem. Disposition - Disposition Disposition: HOME/ ROUTINE Disposition Time: 16:53 Condition: STABLE Instructions: Swelling Forms: [facility] (Belgian) - Clinical Impression Clinical Impression: Arm swelling
[2018-03-31 16:19] LABS: BASO % 0.5 % (0.0-2.0); EOS # 0.1 K/uL (0.0-0.7); EOS % 1.1 % (0.0-4.0); LYMPH % 31.8 % (20.0-40.0); MEAN CELL VOLUME 97.5 fL (81.0-99.0); MEAN CORPUSCULAR HEMOGLOBIN 32.9 pg (27.0-31.0); MEAN CORPUSCULAR HGB CONC 33.7 g/dL (33.0-37.0); MEAN PLATELET VOLUME 7.4 fL (7.2-11.7); MONO # 0.5 K/uL (0.0-0.8); NEUT # 3.7 K/uL (1.8-7.0); NEUT % 58.6 % (50.0-75.0); NRBC % 0.1 % (0.0-2.0); RBC 3.66 Mil/uL (3.80-5.20); RED CELL DISTRIBUTION WIDTH 14.8 % (11.5-14.5); WHITE BLOOD COUNT 6.2 K/uL (4.8-10.8)
[2018-03-31 16:29] LABS: ALB/GLOB RATIO 1.1 (1.0-2.1); ALBUMIN 3.7 g/dL (3.5-5.0); ALT/SGPT 37 U/L (9-52); AST/SGOT 21 U/L (14-36); BLOOD UREA NITROGEN 16 mg/dL (7-17); CALCIUM 9.5 mg/dl (8.6-10.4); GFR NON-AFRICAN AMERICAN 54
--- NOTE | 2018-03-31 16:54 | RAD ---
Date of service: 03/31/2018 HISTORY: R arm swelling COMPARISON: Chest radiograph dated 08/07/2017. FINDINGS: LUNGS: No active pulmonary disease. PLEURA: No significant pleural effusion identified, no pneumothorax apparent. CARDIOVASCULAR: Atherosclerotic aortic calcifications. Cardiomediastinal silhouette stably enlarged. OSSEOUS STRUCTURES: Unchanged. VISUALIZED UPPER ABDOMEN: Normal. OTHER FINDINGS: None. IMPRESSION: No active disease.
[2018-03-31 17:04] VITALS: BP 149/85; PULSE 86
[2018-03-31 17:36] VITALS: O2SAT 99
--- NOTE | 2018-03-31 18:44 | VASCLAB ---
Date of service: 03/31/2018 PROCEDURE: Right Upper Extremity Venous Duplex Exam HISTORY: Right arm swelling, r/o DVT PRIORS: None. TECHNIQUE: Right upper extremity, internal jugular, subclavian, axillary, brachial, ulnar, radial, basilic and upper cephalic veins were evaluated. Flow was assessed with color Doppler, compressibility, assessment of phasic flow and augmentation response. Report prepared by JUAN LUIS Byrd FINDINGS: RIGHT: 1. Internal Jugular: 1.1. Compressibility - Fully compressible: Thrombus - None : Flow - Phasic: Augmentation -Normal: Reflux - None. 2. Subclavian: 2.1. Compressibility - Fully compressible: Thrombus - None : Flow - Phasic: Augmentation -Normal: Reflux - None. 3. Axillary: 3.1. Compressibility - Fully compressible: Thrombus - None : Flow - Phasic: Augmentation -Normal: Reflux - None. 4. Brachial: 4.1. Compressibility - Fully compressible: Thrombus - None: Flow - Phasic: Augmentation -Normal: Reflux - None. 5. Ulnar: 5.1. Compressibility - Fully compressible: Thrombus - None: Flow - Phasic: Augmentation -Normal: Reflux - None. 6. Radial: 6.1. Compressibility - Fully compressible: Thrombus - None: Flow - Phasic: Augmentation - Normal: Reflux - None. 7. Cephalic: 7.1. Compressibility - Fully compressible: Thrombus - None: Flow - Phasic: Augmentation -Normal: Reflux - None. 8. Basilic: 8.1. Compressibility - Fully compressible: Thrombus - None: Flow - Phasic: Augmentation -Normal: Reflux - None. OTHER FINDINGS: Right: None. IMPRESSION: Right: No evidence of vein thrombosis of the right upper extremity with excellent venous flow. Normal valve function noted of the right side. Normal venous flow noted in the left internal jugular and left subclavian veins.
== END 2018-03-31 17:42 | disposition home or self-care (01) ==
LOC: C.ER 15:19
DX: M79.89 Other specified soft tissue disorders (principal)

== ENCOUNTER 2018-04-15 21:40 | Emergency (ER) | payer OTHER ==
[2018-04-15 21:41] VITALS: BMI 35.5
[2018-04-15] MEDS ORDERED: Oxycodone/Acetaminophen 5/325 mg Tab PO STA (22:03)
[2018-04-15] MEDS ORDERED: Oxycodone/Acetaminophen 5/325 mg Tab ONE (22:08)
--- NOTE | 2018-04-15 22:24 | C.PDOC ---
History Of Present Illness 77 y/o female presents to the ED for complaints of knee pain and arm pain s/p mechanical fall earlier today. Patient states she slipped and fell on water in kitchen. She denies any head injury or LOC. Currently she is complaining of pain to the left knee and right upper arm. Otherwise she denies any numbness, tingling, or extremity weakness. Time Seen by Provider: 04/15/18 21:49 Chief Complaint (Nursing): Lower Extremity Problem/Injury History Per: Patient History/Exam Limitations: no limitations Onset/Duration Of Symptoms: Hrs Current Symptoms Are (Timing): Still Present Past Medical History Reviewed: Historical Data, Nursing Documentation, Vital Signs Vital Signs: Last Vital Signs Temp 97.7 F 04/15/18 21:49 Pulse 82 04/15/18 21:49 Resp 20 04/15/18 21:49 BP 142/83 04/15/18 21:49 Pulse Ox 95 04/15/18 23:48 - Medical History PMH: Anxiety, Arthritis, CAD, Depression, Diabetes, Gastritis, Gastrointestinal Ulcer, Hiatal Hernia, HTN, Hypercholesterolemia, Pneumonia Denies: Chronic Kidney Disease Surgical History: Cholecystectomy, Coronary Stent, Endoscopy - [facility] Procedures ESOPHAGOGASTRODUODENOSCOPY [EGD] W/CLOSED BIOPSY (03/05/14) OTHER SKIN & SUBQ I D (08/25/14) Family History: States: Unknown Family Hx - Social History Hx Tobacco Use: No Hx Alcohol Use: No Hx Substance Use: No - Immunization History Hx Tetanus Toxoid Vaccination: No Hx Influenza Vaccination: No Hx Pneumococcal Vaccination: No Review Of Systems Except As Marked, All Systems Reviewed And Found Negative. Musculoskeletal: Positive for: Arm Pain (right upper arm), Leg Pain (left knee pain) Neurological: Negative for: Weakness, Numbness, Incoordination, Other (tingling) Physical Exam - Physical Exam Appears: Non-toxic, Other (Appears uncomfortable) Skin: Normal Color, Warm, No Ecchymosis Head: Atraumatic, Normacephalic Eye(s): bilateral: Normal Inspection Nose: Normal Oral Mucosa: Moist Chest: Symmetrical Respiratory: No Accessory Muscle Use, Other (No respiratory distress) Extremity: Tenderness (Diffuse tenderness throughout the right upper arm; Diffuse tenderness over the left knee, above the knee, and near the proximal tib /fib), No Calf Tenderness, Capillary Refill (less than 2 sec), No Deformity, No Swelling Pulses: Left Dorsalis Pedis: Normal, Right Dorsalis Pedis: Normal Neurological/Psych: Oriented x3, Normal Motor, Normal Sensation ED Course And Treatment O2 Sat by Pulse Oximetry: 95 (RA) Pulse Ox Interpretation: Normal Progress Note: Given Percocet PO for pain control. X-rays taken of the left knee , left femur, left tib/fib, right humerus, right shoulder, and right forearm. All xrays were negative for acute fracture. Knee xray was sent to [facility] and was confirmed to be negative. Deuce wrap was applied to the knee, arm sling was given. Discussed results with patient, all questions answered. Patient's son is at the bedside. Disposition - Disposition Referrals: Brent Barkley MD [Primary Care Provider] - Raymond Mejia III, MD [Staff Provider] - Disposition: HOME/ ROUTINE Disposition Time: 23:57 Condition: STABLE Additional Instructions: Follow up with PMD and Orthopedist within 1-2 days. Return to ED if feel worse. Prescriptions: traMADol/Acetaminophen [Ultracet 325 MG-37.5 MG] 1 tab PO Q6 PRN #30 tab PRN Reason: Pain Instructions: Contusion (DC) Forms: [employer] (Filipino) - Clinical Impression Clinical Impression: Fall, Multiple contusions - PA / HEALTH ASSESSMENT AND TREATMENT TEACHER / Resident Statement MD/DO has reviewed & agrees with the documentation as recorded. - Scribe Statement The provider has reviewed the documentation as recorded by the Scribe (Elza Rm) All medical record entries made by the Scribe were at my direction and personally dictated by me. I have reviewed the chart and agree that the record accurately reflects my personal performance of the history, physical exam, medical decision making, and the department course for this patient. I have also personally directed, reviewed, and agree with the discharge instructions and disposition.
[2018-04-16 02:04] VITALS: BP 149/94; PULSE 84; RESP 14; TEMP 97.6; O2SAT 96
--- NOTE | 2018-04-16 11:21 | RAD ---
Date of service: 04/15/2018 PROCEDURE: Left Femur Radiographs. HISTORY: FALL COMPARISON: None. TECHNIQUE: AP and Lateral Radiographs of the left femur. FINDINGS: FEMUR: No fracture or destructive bony lesion appreciated. Degenerative changes seen at the left hip and knee joints. . SOFT TISSUES: Normal. OTHER FINDINGS: None. IMPRESSION: No acute fracture or destructive bony lesion identified.
--- NOTE | 2018-04-16 11:23 | RAD ---
Date of service: 04/15/2018 PROCEDURE: Left Knee Radiographs. HISTORY: Pain. COMPARISON: None. FINDINGS: BONES: No acute fracture or destructive bony lesion identified. JOINTS: No subluxation or dislocation is identified. However, there is extensive joint space narrowing, articular cortical sclerosis and osteophyte development in all 3 compartments compatible osteoarthritis. JOINT EFFUSION: None. OTHER FINDINGS: Morbid obesity. IMPRESSION: Advanced tricompartmental osteoarthritis. No acute fracture, subluxation or dislocation.
--- NOTE | 2018-04-16 11:24 | RAD ---
PROCEDURE: Radiographs of the Right Forearm HISTORY: FALL COMPARISON: None available. TECHNIQUE: Frontal and lateral views obtained. FINDINGS: BONES: No fracture or destructive lesion. JOINT SPACES: Unremarkable. OTHER FINDINGS: None. IMPRESSION: Unremarkable radiographs of the right forearm.
--- NOTE | 2018-04-16 11:24 | RAD ---
Date of service: 04/15/2018 PROCEDURE: Radiographs of the left tibia and fibula. HISTORY: FALL COMPARISON: None available. TECHNIQUE: Frontal and lateral views obtained. FINDINGS: BONES: No fracture or destructive lesion. JOINT SPACES: Degenerative left knee joint changes are identified as well as at the tibiotalar joint. No subluxation or dislocation. OTHER FINDINGS: None. IMPRESSION: No fracture or dislocation left tibia or fibula.
--- NOTE | 2018-04-16 11:25 | RAD ---
PROCEDURE: Radiographs of the right humerus. HISTORY: FALL COMPARISON: None. FINDINGS: BONES: No acute fracture or destructive bony lesion identified. SOFT TISSUES: Normal. OTHER FINDINGS: None. IMPRESSION: No acute fracture or destructive bony lesion right humerus.
--- NOTE | 2018-04-16 11:27 | RAD ---
Date of service: 04/15/2018 PROCEDURE: Radiographs of the Right Shoulder HISTORY: FALL COMPARISON: No prior. FINDINGS: BONES: No acute fracture or destructive bony lesion identified. JOINTS: Degenerative cortical sclerosis appreciate the acromioclavicular and glenohumeral joints with glenohumeral osteophyte development compatible with osteoarthritis. Questionable subluxation of the humeral head cephalad. Consider possible rotator cuff instability. SOFT TISSUES: Nonfocal. OTHER FINDINGS: None. IMPRESSION: No acute fractures identified or destructive bony lesion. Advanced degenerative joint changes are appreciated at the glenohumeral and acromioclavicular joints. Cephalad subluxation of the right humerus is in question. Clinically correlate further. MRI may be useful for additional characterization.
== END 2018-04-16 02:03 | disposition home or self-care (01) ==
LOC: C.ER 21:40 → SUPCPDRO 21:40 → C.ER 04-16 02:03
DX: S80.02XA Contusion of left knee, initial encounter (principal); S40.021A Contusion of right upper arm, initial encounter; W01.0XXA Fall on same level from slipping, tripping and stumbling without subsequent striking against object, initial encounter

== ENCOUNTER 2018-11-27 15:56 | Inpatient (IN) | payer OTHER ==
[2018-11-27 15:57] VITALS: BMI 35.5
[2018-11-27 16:50] LABS: BASO % 0.6 % (0.0-2.0); EOS # 0.1 K/uL (0.0-0.7); EOS % 1.8 % (0.0-4.0); HEMOGLOBIN 11.1 g/dL (11.0-16.0); LYMPH # 1.8 K/uL (1.0-4.3); LYMPH % 41.1 % (20.0-40.0); MEAN CELL VOLUME 101.4 fL (81.0-99.0); MEAN CORPUSCULAR HEMOGLOBIN 33.3 pg (27.0-31.0); MEAN CORPUSCULAR HGB CONC 32.8 g/dL (33.0-37.0); MEAN PLATELET VOLUME 7.7 fL (7.2-11.7); MONO # 0.5 K/uL (0.0-0.8); MONO % 11.8 % (0.0-10.0); NEUT % 44.7 % (50.0-75.0); NRBC % 0.1 % (0.0-2.0); RBC 3.33 Mil/uL (3.80-5.20); RED CELL DISTRIBUTION WIDTH 14.8 % (11.5-14.5); WHITE BLOOD COUNT 4.5 K/uL (4.8-10.8)
[2018-11-27] MEDS ORDERED: Piperacillin/Tazobact 3.375 gm 100 ML IV STA (17:07)
[2018-11-27 17:11] LABS: INR 1.1; PROTHROMBIN TIME 12.2 SECONDS (9.7-12.2)
[2018-11-27 17:13] LABS: ALB/GLOB RATIO 1.3 (1.0-2.1); ALBUMIN 3.5 g/dL (3.5-5.0); ALT/SGPT 30 U/L (9-52); AST/SGOT 27 U/L (14-36); BLOOD UREA NITROGEN 16 mg/dL (7-17); CALCIUM 9.1 mg/dl (8.6-10.4); GFR NON-AFRICAN AMERICAN > 60
[2018-11-27] MEDS ORDERED: Piperacillin/Tazobact 3.375 gm 0 ML IVPB ONE (17:14)
[2018-11-27] MEDS ORDERED: Piperacillin/Tazobact 3.375 gm 100 ML IVPB ONE (17:34)
--- NOTE | 2018-11-27 17:44 | C.PDOC ---
History Of Present Illness 78 year old female is sent to the ED by Dr. Barkley for evaluation of right ulcer to her right foot. Patient states she is not sure how the ulcer happened. Patient denies fever, chills, weakness, numbness, injury, fall, trauma. Time Seen by Provider: 11/27/18 16:22 Chief Complaint (Nursing): Medical Clearance History Per: Patient History/Exam Limitations: no limitations Onset/Duration Of Symptoms: Days Current Symptoms Are (Timing): Still Present Recent travel outside of the [place]: No Additional History Per: Patient Past Medical History Reviewed: Historical Data, Nursing Documentation, Vital Signs Vital Signs: Last Vital Signs Temp 97.5 F L 11/27/18 16:07 Pulse 88 11/27/18 16:07 Resp 20 11/27/18 16:07 BP 149/83 11/27/18 16:07 Pulse Ox 95 11/27/18 16:07 - Medical History PMH: Anxiety, Arthritis, CAD, Depression, Diabetes, Gastritis, Gastrointestinal Ulcer, Hiatal Hernia, HTN, Hypercholesterolemia, Pneumonia Denies: Chronic Kidney Disease Surgical History: Cholecystectomy, Coronary Stent, Endoscopy - [facility] Procedures ESOPHAGOGASTRODUODENOSCOPY [EGD] W/CLOSED BIOPSY (03/05/14) OTHER SKIN & SUBQ I D (08/25/14) Family History: States: Unknown Family Hx - Social History Hx Tobacco Use: No Hx Alcohol Use: No Hx Substance Use: No - Immunization History Hx Tetanus Toxoid Vaccination: No Hx Influenza Vaccination: No Hx Pneumococcal Vaccination: No Review Of Systems Constitutional: Negative for: Fever, Chills Cardiovascular: Negative for: Chest Pain Respiratory: Negative for: Shortness of Breath Gastrointestinal: Negative for: Nausea, Vomiting, Abdominal Pain Musculoskeletal: Positive for: Foot Pain Skin: Positive for: Other (ulcer). Negative for: Rash Neurological: Negative for: Weakness, Numbness Physical Exam - Physical Exam Appears: Non-toxic, No Acute Distress, Other (elderly blakc female) Skin: Normal Color, Warm, Dry Head: Atraumatic, Normacephalic Eye(s): bilateral: Normal Inspection Neck: Normal ROM, Supple Chest: Symmetrical Cardiovascular: Rhythm Regular Respiratory: Normal Breath Sounds, No Rales, No Rhonchi, No Wheezing Gastrointestinal/Abdominal: Soft, No Tenderness Extremity: Normal ROM, Tenderness (right foot), Capillary Refill (< 2 seconds), Other (small 1x1 dorsal aspect right 5th toe, macerated. no foul smelling) Pulses: Left Dorsalis Pedis: Normal, Right Dorsalis Pedis: Normal Neurological/Psych: Oriented x3, Normal Speech, Normal Cognition Gait: Steady ED Course And Treatment - Laboratory Results Result Diagrams: 11/27/18 16:47 11/27/18 16:47 Lab Interpretation: Normal ECG: Interpreted By Me ECG Rhythm: Sinus Rhythm ECG Interpretation: Normal Rate From EC O2 Sat by Pulse Oximetry: 95 (97) Pulse Ox Interpretation: Normal - Radiology CXR: Interpreted by Me CXR Interpretation: Yes: No Acute Disease - Other Rad R foot X-Ray: Interpreted by Me (no periosteal lifting R 5th toe ) Reevaluation Time: 17:45 Reassessment Condition: Improved - Physician Consult Information Outcome Of Conversation: 1744: d/w jorge Wyatt to adm to Dr. Dalton wheeler. 1749: d/w Dr. Dalton patel to med/surg Obs Disposition Doctor Will See Patient In The: Hospital Counseled Patient/Family Regarding: Studies Performed, Diagnosis - Disposition Disposition: HOSPITALIZED Disposition Time: 17:48 Condition: GOOD - Clinical Impression Clinical Impression: Chronic toe ulcer - Scribe Statement The provider has reviewed the documentation as recorded by the Scribe Barry Stallings All medical record entries made by the Scribe were at my direction and personally dictated by me. I have reviewed the chart and agree that the record accurately reflects my personal performance of the history, physical exam, medical decision making, and the department course for this patient. I have also personally directed, reviewed, and agree with the discharge instructions and disposition.
--- NOTE | 2018-11-27 18:28 | CP.PCM.CON ---
History of Present Illness - History of Present Illness History of Present Illness: Podiatry Consult Note: Dr. Raphael 78 year old female with PMHx of DM, HTN, Gastirits, CAD was seen and evaluated for right foot 5th digit wound. Patient reports that she was seen by Dr. Raphael in his office who advised her to go to the ED. Reports that she had a callus on the toe which Dr. Raphael debrided in his office. Patient states that she was suppose to follow up with him and missed an appointment and states that it became infected at that time. Reports that she was given oral abx which did not work for her. States that Dr. Raphael drained some pus from her left toe before coming to the hospital. Patient reports of having mild pain to the 5th toe. Denies of having any recent F/N/V/C/SOB/CP/headache. Denies of having any numbness, tingling or burning to bilateral LE. Denies of any other pedal complains at this time. PMHx: DM, HTN, Gastirits, CAD PSHx: Denies Allergies: NKDA SHx: Denies of smoking, Denies EtOH or illicit drug usage Review of Systems - Constitutional Constitutional: As Per HPI Past Patient History - Infectious Disease Hx of Infectious Diseases: None - Past Medical History & Family History Past Medical History?: Yes - Past Social History Smoking Status: Never Smoked - CARDIAC Hx Hypercholesterolemia: Yes Hx Hypertension: Yes - PULMONARY Hx Pneumonia: Yes - NEUROLOGICAL Hx Neurological Disorder: No - HEENT Hx HEENT Problems: Yes Hx Cataracts: Yes - RENAL Hx Chronic Kidney Disease: No - ENDOCRINE/METABOLIC Hx Diabetes Mellitus Type 2: Yes - HEMATOLOGICAL/ONCOLOGICAL Hx Blood Disorders: No - INTEGUMENTARY Hx Dermatological Problems: No - MUSCULOSKELETAL/RHEUMATOLOGICAL Hx Arthritis: Yes - GASTROINTESTINAL Hx Gastritis: Yes - GENITOURINARY/GYNECOLOGICAL Hx Genitourinary Disorders: No - PSYCHIATRIC Hx Anxiety: Yes Hx Depression: Yes Hx Substance Use: No - SURGICAL HISTORY Hx Cholecystectomy: Yes Hx Coronary Stent: Yes - ANESTHESIA Hx Anesthesia: Yes Meds Allergies/Adverse Reactions: Allergies Allergy/AdvReac Type Severity Reaction Status Date / Time No Known Allergies Allergy Verified 11/27/18 16:12 Physical Exam - Constitutional Appears: Well, Non-toxic, No Acute Distress - Extremities Exam Additional comments: Bilateral LE focused exam: VASC: DP/PT pulses are palpable 2/4; Cap refill time: < 3 sec to all digits, Temp gradient: warm to cool from proximal to distal with localized warmth on the dorsal aspect of the 5th digit right foot, diffuse localized non-pitting edema noted on the right dorsal 5th digit DERM: Small wound measuring approx 0.3 cm x 0.2 cm x 0.1 cm on dorsal aspect of the 5th digit PIPJ right foot, no active drainage, no malodor, no probe to bone, no undermining, no tunneling, no erythema NEURO: Protective sensation grossly intact ORTHO: mild pain on palpation of the PIPJ of the right foot 5th digit, no pain during ROM of the right foot 5th digit - Neurological Exam Neurological exam: Alert, Oriented x3 - Psychiatric Exam Psychiatric exam: Normal Affect, Normal Mood Results - Vital Signs Recent Vital Signs: Last Vital Signs Temp 97.5 F L 11/27/18 16:07 Pulse 88 11/27/18 16:07 Resp 20 11/27/18 16:07 BP 149/83 11/27/18 16:07 Pulse Ox 95 11/27/18 17:48 - Labs Result Diagrams: 11/27/18 16:47 11/27/18 16:47 Labs: Laboratory Results - last 24 hr 11/27/18 11/27/18 11/27/18 16:47 16:47 16:47 WBC 4.5 L RBC 3.33 L Hgb 11.1 Hct 33.7 L MCV 101.4 H D MCH 33.3 H MCHC 32.8 L RDW 14.8 H Plt Count 220 MPV 7.7 Neut % (Auto) 44.7 L Lymph % (Auto) 41.1 H [place] % (Auto) 11.8 H Eos % (Auto) 1.8 Baso % (Auto) 0.6 Neut # (Auto) 2.0 Lymph # (Auto) 1.8 [place] # (Auto) 0.5 Eos # (Auto) 0.1 Baso # (Auto) 0.0 PT 12.2 INR 1.1 APTT 38.0 H Sodium 137 Potassium 4.0 Chloride 105 Carbon Dioxide 29 Anion Gap 8 L BUN 16 Creatinine 0.8 Est GFR ( Amer) > 60 Est GFR (Non-Af Amer) > 60 Random Glucose 103 Calcium 9.1 Total Bilirubin 0.3 AST 27 ALT 30 Alkaline Phosphatase 75 Troponin I < 0.0120 Total Protein 6.2 L Albumin 3.5 Globulin 2.6 Albumin/Globulin Ratio 1.3 Assessment & Plan - Assessment and Plan (Free Text) Assessment: 78 year old female with PMHx of DM, HTN, Gastirits, CAD was evaluated for right 5th digit wound Plan: Patient seen and evaluated Discussed plan with attending Dr. Ijeoma ALBERTO, no leukocytosis Right foot x-rays: Cortical erosion with periosteal reaction on the distal lateral aspect of the 5th proximal phalanx concerning for OM; no soft tissue emphysema f/u wound cultures ID consult, Dr. Cleaning IV abx as per ID Wound cleaned with saline and dressing applied using H2O2 and DSD Patient to be admitted for IV abx vs. amputation Thank you for the podiatry consult and allowing to take part in patient care Will continue to follow patient while in-house - Date & Time Date: 11/27/18 Time: 18:39
--- NOTE | 2018-11-27 18:51 | RAD ---
HISTORY: SOB COMPARISON: Chest x-ray performed 03/31/18 TECHNIQUE: Chest, one view. FINDINGS: Examination limited by habitus and patient obliquity. LUNGS: Medial right upper lobe opacity of unclear significance, favored artifactual. Biapical pleural thickening. Please note that chest x-ray has limited sensitivity for the detection of pulmonary masses. PLEURA: No significant pleural effusion identified. No definite pneumothorax . CARDIOVASCULAR: Enlargement of the cardiomediastinal silhouette persists. Ectatic aorta containing atherosclerotic calcifications. OSSEOUS STRUCTURES: Scoliosis. Degenerative changes. VISUALIZED UPPER ABDOMEN: Unremarkable. OTHER FINDINGS: None. IMPRESSION: Medial right upper lobe opacity of unclear significance, likely artifactual. Biapical pleural thickening. Enlargement of the cardiomediastinal silhouette persists. Ectatic aorta containing atherosclerotic calcifications. Cause of upper mediastinal enlargement is uncertain; positioning as well as ectatic vasculature favored however alternatives including adenopathy are not excluded. If indicated CT of the chest with IV contrast may be considered for further evaluation. Findings discussed with Dr. Flores on 11/27/18 at 6:41 p.m.
--- NOTE | 2018-11-27 18:55 | RAD ---
PROCEDURE: Right foot radiographs. Three views. HISTORY: R 5th toe COMPARISON: None available. FINDINGS: BONES: Osseous demineralization. Degenerative changes. No acute displaced fracture. JOINTS: No dislocation. Joint space narrowing most severe at the 1st tarsal metatarsal joint space. SOFT TISSUES: Soft tissue swelling. No evidence of radiopaque foreign body. OTHER FINDINGS: None. IMPRESSION: Soft tissue swelling. Osseous demineralization. Degenerative changes. Please note that MRI without and with IV contrast most sensitive in detection of acute osteomyelitis.
--- NOTE | 2018-11-27 21:42 | CP.PCM.CON ---
History of Present Illness - History of Present Illness History of Present Illness: Vascular Surgery: Jimy Patient is a 78 yr old female pwith [facility] presenting with a wound to her right 5th toe. Patient was recently seen by Dr. Whipple to have callus removed, failed to follow up and subsequently developed infection. Pt was sent to ER today for evaluation. Surgery was consulted for evaluation of this wound of the right 5th toe. Patient states that pain is wel controlled and otherwise denies f/c n/v, extremity burning or tingling, numbness or weakness in her extremities. she additionally denies sensory deficits in the extremity. 12 point ROS otherwise negative PMH: HTN, Gastritis, CAD, DM, HLD PSH: denies Social: denies ETOH tobacco and drug use all: NKDA Review of Systems - Review of Systems All systems: reviewed and no additional remarkable complaints except (as per HPI) Past Patient History - Infectious Disease Hx of Infectious Diseases: None - Past Medical History & Family History Past Medical History?: Yes - Past Social History Smoking Status: Never Smoked - CARDIAC Hx Hypercholesterolemia: Yes Hx Hypertension: Yes - PULMONARY Hx Pneumonia: Yes - NEUROLOGICAL Hx Neurological Disorder: No - HEENT Hx HEENT Problems: Yes Hx Cataracts: Yes - RENAL Hx Chronic Kidney Disease: No - ENDOCRINE/METABOLIC Hx Diabetes Mellitus Type 2: Yes - HEMATOLOGICAL/ONCOLOGICAL Hx Blood Disorders: No - INTEGUMENTARY Hx Dermatological Problems: No - MUSCULOSKELETAL/RHEUMATOLOGICAL Hx Arthritis: Yes - GASTROINTESTINAL Hx Gastritis: Yes - GENITOURINARY/GYNECOLOGICAL Hx Genitourinary Disorders: No - PSYCHIATRIC Hx Anxiety: Yes Hx Depression: Yes Hx Substance Use: No - SURGICAL HISTORY Hx Cholecystectomy: Yes Hx Coronary Stent: Yes - ANESTHESIA Hx Anesthesia: Yes Meds Allergies/Adverse Reactions: Allergies Allergy/AdvReac Type Severity Reaction Status Date / Time No Known Allergies Allergy Verified 11/27/18 16:12 - Medications Medications: Current Medications Alprazolam (Xanax) 0.5 mg PO TID [facility] Aspirin (Aspirin Chewable) 81 mg PO DAILY [facility] Carvedilol (Coreg) 6.25 mg PO BID [facility] Enoxaparin Sodium (Lovenox) 40 mg SC DAILY [facility] Home Med (Olopatadine 0.1% Opht [Patanol 0.1% Opht Soln]) 50 drop OU BID PRN PRN Reason: Itching / Pruritus Home Med (Tramadol/Acetaminophen [Ultracet 37.5/325 Mg]) 1 tab PO Q6 PRN PRN Reason: Pain Piperacillin Sod/Tazobactam Sod (Zosyn 3.375 Gm Iv Premix) 3.375 gm in 50 mls @ 100 mls/hr IVPB Q8H [facility]; Protocol Insulin Aspart (Novolog) 0 unit SC ACHS [facility]; Protocol Latanoprost (Xalatan Opht) 0 ml OU HS [facility] Losartan Potassium (Cozaar) 100 mg PO DAILY [facility] Metformin HCl (Glucophage) 500 mg PO BID [facility] Pantoprazole Sodium (Protonix Ec Tab) 40 mg PO DAILY [facility] Rosuvastatin Calcium (Crestor) 20 mg PO HS [facility] Physical Exam - Constitutional Appears: Well, Non-toxic, No Acute Distress - Head Exam Head Exam: ATRAUMATIC, NORMOCEPHALIC - Eye Exam Eye Exam: EOMI - ENT Exam ENT Exam: Mucous Membranes Moist - Respiratory Exam Respiratory Exam: NORMAL BREATHING PATTERN - Cardiovascular Exam Cardiovascular Exam: REGULAR RHYTHM - GI/Abdominal Exam GI & Abdominal Exam: Soft. absent: Tenderness - Extremities Exam Extremities exam: Positive for: normal capillary refill, tenderness (right 5th toe), pedal pulses present. Negative for: calf tenderness Additional comments: small subcentimenter circular wound at the tip of the right 5th toe, no purulent drainage, no foul odor - Neurological Exam Neurological exam: Alert, Oriented x3 - Psychiatric Exam Psychiatric exam: Normal Affect, Normal Mood - Skin Skin Exam: Dry, Warm Results - Vital Signs Recent Vital Signs: Last Vital Signs Temp 97.4 F L 11/27/18 19:53 Pulse 85 11/27/18 19:53 Resp 20 11/27/18 19:53 BP 132/79 11/27/18 19:53 Pulse Ox 97 11/27/18 19:53 - Labs Result Diagrams: 11/27/18 16:47 11/27/18 16:47 Labs: Laboratory Results - last 24 hr 11/27/18 11/27/18 11/27/18 16:47 16:47 16:47 WBC 4.5 L RBC 3.33 L Hgb 11.1 Hct 33.7 L MCV 101.4 H D MCH 33.3 H MCHC 32.8 L RDW 14.8 H Plt Count 220 MPV 7.7 Neut % (Auto) 44.7 L Lymph % (Auto) 41.1 H [place] % (Auto) 11.8 H Eos % (Auto) 1.8 Baso % (Auto) 0.6 Neut # (Auto) 2.0 Lymph # (Auto) 1.8 [place] # (Auto) 0.5 Eos # (Auto) 0.1 Baso # (Auto) 0.0 PT 12.2 INR 1.1 APTT 38.0 H Sodium 137 Potassium 4.0 Chloride 105 Carbon Dioxide 29 Anion Gap 8 L BUN 16 Creatinine 0.8 Est GFR ( Amer) > 60 Est GFR (Non-Af Amer) > 60 Random Glucose 103 Calcium 9.1 Total Bilirubin 0.3 AST 27 ALT 30 Alkaline Phosphatase 75 Troponin I < 0.0120 Total Protein 6.2 L Albumin 3.5 Globulin 2.6 Albumin/Globulin Ratio 1.3 Assessment & Plan - Assessment and Plan (Free Text) Assessment: 78 F with PMH significant for DM and CAD presenting with R 5th toe wound Plan: - palpable pulses, no evidence of vascular disease - further care per podiatry recs - abx per ID - further recs per Dr. Jimy Maya, PGY 1 - Date & Time Date: 11/28/18 Time: 00:34
[2018-11-27] MEDS: Latanoprost 2.5 ml Opht Soln OU SCH (21:55)
[2018-11-27] MEDS: (Novolog) Insulin Aspart, Recombinant 100 u/ml 10 ml vial SC SCH (21:58)
[2018-11-28] MEDS: Piperacill/Tazo 3.375gm in Dex 3.375 GM/50 ML BAG IVPB SCH ×3 (00:05→16:30)
[2018-11-28] MEDS: (Novolog) Insulin Aspart, Recombinant 100 u/ml 10 ml vial SC SCH ×4 (07:12→21:00)
[2018-11-28] MEDS ORDERED: Naphazoline-Pheniramine Ophth Soln OU PRN (08:15)
[2018-11-28] MEDS: Pantoprazole 40 mg EC Tab PO SCH (09:07)
[2018-11-28] MEDS: Enoxaparin 40 mg Syringe SC SCH (09:07)
--- NOTE | 2018-11-28 14:25 | CP.PCM.PN ---
Subjective - Date & Time of Evaluation Date of Evaluation: 11/28/18 Time of Evaluation: 14:22 - Subjective Subjective: Podiatry Consult Note: Dr. Raphael 78 year old female was seen and evaluated for right foot 5th digit wound. Patient is AAOx3 and appears in NAD. Denies of any pain today. Reports that she is feeling a lot better today. No recent F/N/V/C/SOB/CP/headache. No other pedal complains at this time. Objective - Vital Signs/Intake and Output Vital Signs (last 24 hours): Temp Pulse Resp BP Pulse Ox 98 F 101 H 20 122/88 95 11/27/18 23:05 11/28/18 09:09 11/27/18 23:05 11/28/18 09:09 11/28/18 00:04 - Medications Medications: Current Medications Alprazolam (Xanax) 0.5 mg PO TID [facility] Last Admin: 11/28/18 09:07 Dose: 0.5 mg Aspirin (Aspirin Chewable) 81 mg PO DAILY [facility] Last Admin: 11/28/18 09:07 Dose: 81 mg Carvedilol (Coreg) 6.25 mg PO BID [facility] Last Admin: 11/28/18 09:07 Dose: 6.25 mg Enoxaparin Sodium (Lovenox) 40 mg SC DAILY [facility] Last Admin: 11/28/18 09:07 Dose: 40 mg Piperacillin Sod/Tazobactam Sod (Zosyn 3.375 Gm Iv Premix) 3.375 gm in 50 mls @ 100 mls/hr IVPB Q8H [facility]; Protocol Last Admin: 11/28/18 08:05 Dose: 100 mls/hr Insulin Aspart (Novolog) 0 unit SC ACHS [facility]; Protocol Last Admin: 11/28/18 12:00 Dose: Not Given Latanoprost (Xalatan Opht) 0 ml OU HS [facility] Last Admin: 11/27/18 21:55 Dose: 2.5 ml Losartan Potassium (Cozaar) 100 mg PO DAILY [facility] Last Admin: 11/28/18 09:07 Dose: 100 mg Metformin HCl (Glucophage) 500 mg PO BID [facility] Last Admin: 11/28/18 09:07 Dose: 500 mg Naphazoline HCl/Pheniramine Maleate (Naphcon-A Opht) 0 ml OU BID PRN PRN Reason: Itching / Pruritus Stop: 12/01/18 10:01 Pantoprazole Sodium (Protonix Ec Tab) 40 mg PO DAILY [facility] Last Admin: 11/28/18 09:07 Dose: 40 mg Rosuvastatin Calcium (Crestor) 20 mg PO HS [facility] Last Admin: 11/27/18 21:54 Dose: 20 mg Tramadol HCl (Ultram) 50 mg PO Q6H PRN PRN Reason: Pain - Labs Labs: 11/27/18 16:47 11/27/18 16:47 PT 12.2 SECONDS (9.7-12.2) 11/27/18 16:47 INR 1.1 11/27/18 16:47 APTT 38.0 SECONDS (21-34) H 11/27/18 16:47 - Constitutional Appears: Well, Non-toxic, No Acute Distress - Extremities Exam Additional comments: Bilateral LE focused exam: VASC: DP/PT pulses are palpable 2/4; Cap refill time: < 3 sec to all digits, Temp gradient: warm to cool from proximal to distal, diffuse localized non- pitting edema noted on the right dorsal 5th digit - appears to be improved from yesterday DERM: Small wound measuring approx 0.3 cm x 0.2 cm x 0.1 cm on dorsal aspect of the 5th digit PIPJ right foot, no active drainage, no malodor, no probe to bone, no undermining, no tunneling, no erythema NEURO: Protective sensation grossly intact ORTHO: mild pain on palpation of the PIPJ of the right foot 5th digit, no pain during ROM of the right foot 5th digit - Neurological Exam Neurological Exam: Alert, Awake, Oriented x3 - Psychiatric Exam Psychiatric exam: Normal Affect, Normal Mood Assessment and Plan - Assessment and Plan (Free Text) Assessment: 78 year old female was evaluated for right 5th digit wound Plan: Patient seen and evaluated Discussed plan with attending Dr. Ijeoma ALBERTO, no leukocytosis Right foot x-rays: Cortical erosion with periosteal reaction on the distal lateral aspect of the 5th proximal phalanx concerning for OM; no soft tissue emphysema f/u wound cultures - pending ID consult, Dr. Cleaning IV abx as per ID Vascular Consult, Dr. Ahn - recs appreciated Wound cleaned with saline and dressing applied using H2O2 and DSD Patient to be admitted for IV abx vs. amputation Will continue to follow patient while in-house
--- NOTE | 2018-11-28 14:39 | CP.PCM.CON ---
History of Present Illness - History of Present Illness History of Present Illness: seen on rounds full report to follow 78 yr old female pwith [facility] presenting with a wound to her right 5th toe. Patient was recently seen by Dr. Whipple to have callus removed, failed to follow up and subsequently developed infection. Pt was sent to ER today for evaluation. Surgery was consulted for evaluation of this wound of the right 5th toe. Patient states that pain is wel controlled and otherwise denies f/c n/v, extremity burning or tingling, numbness or weakness in her extremities. she additionally denies sensory deficits in the extremity. 12 point ROS otherwise negative PMH: HTN, Gastritis, CAD, DM, HLD PSH: denies Social: denies ETOH tobacco and drug use all: NKDA Review of Systems - Review of Systems All systems: reviewed and no additional remarkable complaints except - Constitutional Constitutional: As Per HPI - EENT Eyes: absent: As Per HPI, Blind Spots, Blurred Vision, Change in Vision, Decreased Night Vision, Diplopia, Discharge, Dry Eye, Exophthalmos, Floaters, Irritation, Itchy Eyes, Loss of Peripheral Vision, Pain, Photophobia, Requires Corrective Lenses, Sees Flashes, Spots in Vision, Tunnel Vision, Other Visual Disturbances, Loss of Vision, Other Ears: Abnormal Hearing Nose/Mouth/Throat: absent: As Per HPI, Epistaxis, Nasal Congestion, Nasal Discharge, Nasal Obstruction, Nasal Trauma, Nose Pain, Post Nasal Drip, Sinus Pain, Sinus Pressure, Bleeding Gums, Change in Voice, Dental Pain, Dry Mouth, Dysphagia, Halitosis, Hoarsness, Lip Swelling, Mouth Lesions, Mouth Pain, Odynophagia, Sore Throat, Throat Swelling, Tongue Swelling, Facial Pain, Neck Pain, Neck Mass, Other - Breasts Breasts: absent: As Per HPI, Change in Shape, Mass, Pain, Nipple Discharge, Nipple Inversion, Skin Changes, Swelling, Other - Cardiovascular Cardiovascular: absent: As Per HPI, Acrocyanosis, Chest Pain, Chest Pain at Rest, Chest Pain with Activity, Claudication, Diaphoresis, Dyspnea, Dyspnea on Exertion, Edema, Irregular Heart Rhythm, Pain Radiating to Arm/Neck/Jaw, Leg Edema, Leg Ulcers, Lightheadedness, Orthopnea, Palpitations, Paroxysmal Nocturnal Dyspnea, Pedal Edema, Radiating Pain, Rapid Heart Rate, Slow Heart Rate, Syncope, Other - Respiratory Respiratory: absent: As Per HPI, Cough, Dyspnea, Hemoptysis, Dyspnea on Exertion, Wheezing, Snoring, Stridor, Pain on Inspiration, Chest Congestion, Excessive Mucous Production, Change in Mucous Color, Pain with Coughing, Other - Gastrointestinal Gastrointestinal: absent: As Per HPI, Abdominal Pain, Belching, Bloating, Change in Bowel Habits, Change in Stool Character, Coffee Ground Emesis, Constipation, Cramping, Diarrhea, Dyspepsia, Dysphagia, Early Satiety, Excessive Flatus, Fecal Incontinence, Heartburn, Hematemesis, Hematochezia, Loose Stools, Melena, Nausea, Odynophagia, Temesmus, Vomiting, Other - Genitourinary Genitourinary: absent: As Per HPI, Change in Urinary Stream, Difficulty Urinating, Dysuria, Flank Pain, Hematuria, Pyuria, Nocturia, Urinary Incontinence, Urinary Frequency, Urinary Hesitance, Urinary Urgency, Voiding Freq/Small Amts, Freq UTI, Hx Renal/Bladder Calculi, Hx /Renal Surgery, Bladder Distension, Other - Reproductive: Female Reproductive:Female: absent: As Per HPI, Amenorrhea, Amenorrhea/ Control, Currently Menstual, Cycle <21 Days, Cycle >35 Days, Cycle Variable, Menses 1-7 Days, Menses >/= 8 Days, Menses Variable, Cycle > 4 Weeks Between, No Menses for 6 Months, Heavy Menses, Light Menses, Normal Menses, Spotting Between Cycles, S/P Hysterectomy, Menopausal, Post Menopausal, Premenarche, Abnormal Vaginal Bleeding, Dysmenorrhea, Dyspareunia, Genital Lesions, Genital Pruritis, Pelvic Pain, Prolapse Symptoms, Sexual Dysfunction, Vaginal Discharge, Vaginal Dryness, Vaginal Odor, Vaginal Pruritis, Other - Menstruation Menstruation: absent: As Per HPI, Amenorrhea, Amenorrhea/ Control, Currently Menstual, Cycle <21 Days, Cycle >35 Days, Cycle Variable, Menses 1-7 Days, Menses >/= 8 Days, Menses Variable, Cycle > 4 Weeks Between, No Menses for 6 Months, Heavy Menses, Light Menses, Normal Menses, Spotting Between Cycles, S/P Hysterectomy, Menopausal, Post Menopausal, Premenarche, Abnormal Vaginal Bleeding, Dysmenorrhea, Other - Musculoskeletal Musculoskeletal: absent: As Per HPI, Abnormal Gait, Arthralgias, Atrophy, Back Pain, Deformity, Joint Swelling, Limited Range of Motion, Loss of Height, Muscle Cramps, Muscle Weakness, Myalgias, Neck Pain, Numbness, Radiating Pain into Limb, Stiffness, Tingling, Other - Integumentary Integumentary: As Per HPI, Skin Pain, Wounds - Neurological Neurological: absent: As Per HPI, Abnormal Gait, Abnormal Hearing, Abnormal Movements, Abnormal Speech, Behavioral Changes, Burning Sensations, Confusion, Convulsions, Disequilibrium, Dizziness, Numbness, Focal Weakness, Frequent Falls, Headaches, Lack of Coordination, Loss of Vision, Memory Loss, Paresthesia s, Radicular Pain, Restless Legs, Sensory Deficit, Syncope, Tingling, Tremor, Vertigo, Weakness, Other Visual Disturbances, Other - Psychiatric Psychiatric: absent: As Per HPI, Abnormal Sleep Pattern, Anhedonia, Anxiety, Auditory Hallucinations, Behavioral Changes, Change in Appetite, Change in Libido, Confusion, Depression, Difficulty Concentrating, Hallucinations, Homicidal Ideation, Hopelessness, Irritability, Memory Loss, Mood Swings, Panic Attacks, Paranoia, Suicidal Ideation, Visual Hallucinations, Tactile Hallucinations, Other - Endocrine Endocrine: absent: As Per HPI, Change in Body Appearance, Change in Libido, Cold Intolorance, Deepening of Voice, Excessive Sweating, Fatigue, Flushing, Heat Intolorance, Increase in Ring/Shoe/Hat Size, Palpitations, Polydipsia, Polyphagia, Polyuria, Other - Hematologic/Lymphatic Hematologic: absent: As Per HPI, Easy Bleeding, Easy Bruising, Lymphadenopathy, Other Past Patient History - Infectious Disease Hx of Infectious Diseases: None - Past Medical History & Family History Past Medical History?: Yes - Past Social History Smoking Status: Never Smoked - CARDIAC Hx Hypercholesterolemia: Yes Hx Hypertension: Yes - PULMONARY Hx Pneumonia: Yes - NEUROLOGICAL Hx Neurological Disorder: No - HEENT Hx HEENT Problems: Yes Hx Cataracts: Yes - RENAL Hx Chronic Kidney Disease: No - ENDOCRINE/METABOLIC Hx Diabetes Mellitus Type 2: Yes - HEMATOLOGICAL/ONCOLOGICAL Hx Blood Disorders: No - INTEGUMENTARY Hx Dermatological Problems: No - MUSCULOSKELETAL/RHEUMATOLOGICAL Hx Arthritis: Yes - GASTROINTESTINAL Hx Gastritis: Yes - GENITOURINARY/GYNECOLOGICAL Hx Genitourinary Disorders: No - PSYCHIATRIC Hx Anxiety: Yes Hx Depression: Yes Hx Substance Use: No - SURGICAL HISTORY Hx Cholecystectomy: Yes Hx Coronary Stent: Yes - ANESTHESIA Hx Anesthesia: Yes Meds Allergies/Adverse Reactions: Allergies Allergy/AdvReac Type Severity Reaction Status Date / Time No Known Allergies Allergy Verified 11/27/18 16:12 - Medications Medications: Current Medications Alprazolam (Xanax) 0.5 mg PO TID [facility] Last Admin: 11/28/18 09:07 Dose: 0.5 mg Aspirin (Aspirin Chewable) 81 mg PO DAILY [facility] Last Admin: 11/28/18 09:07 Dose: 81 mg Carvedilol (Coreg) 6.25 mg PO BID [facility] Last Admin: 11/28/18 09:07 Dose: 6.25 mg Enoxaparin Sodium (Lovenox) 40 mg SC DAILY [facility] Last Admin: 11/28/18 09:07 Dose: 40 mg Piperacillin Sod/Tazobactam Sod (Zosyn 3.375 Gm Iv Premix) 3.375 gm in 50 mls @ 100 mls/hr IVPB Q8H [facility]; Protocol Last Admin: 11/28/18 08:05 Dose: 100 mls/hr Insulin Aspart (Novolog) 0 unit SC [facility]; Protocol Last Admin: 11/28/18 12:00 Dose: Not Given Latanoprost (Xalatan Opht) 0 ml OU HS [facility] Last Admin: 11/27/18 21:55 Dose: 2.5 ml Losartan Potassium (Cozaar) 100 mg PO DAILY [facility] Last Admin: 11/28/18 09:07 Dose: 100 mg Metformin HCl (Glucophage) 500 mg PO BID [facility] Last Admin: 11/28/18 09:07 Dose: 500 mg Naphazoline HCl/Pheniramine Maleate (Naphcon-A Opht) 0 ml OU BID PRN PRN Reason: Itching / Pruritus Stop: 12/01/18 10:01 Pantoprazole Sodium (Protonix Ec Tab) 40 mg PO DAILY [facility] Last Admin: 11/28/18 09:07 Dose: 40 mg Rosuvastatin Calcium (Crestor) 20 mg PO HS [facility] Last Admin: 11/27/18 21:54 Dose: 20 mg Tramadol HCl (Ultram) 50 mg PO Q6H PRN PRN Reason: Pain Physical Exam - Constitutional Appears: No Acute Distress, Cachectic, Chronically Ill - Head Exam Head Exam: ATRAUMATIC, NORMAL INSPECTION, NORMOCEPHALIC - Eye Exam Eye Exam: EOMI, Normal appearance, PERRL Pupil Exam: NORMAL ACCOMODATION, PERRL - ENT Exam ENT Exam: Mucous Membranes Moist, Normal Exam - Neck Exam Neck exam: Positive for: Normal Inspection - Respiratory Exam Respiratory Exam: Clear to Auscultation Bilateral, NORMAL BREATHING PATTERN - Cardiovascular Exam Cardiovascular Exam: REGULAR RHYTHM - GI/Abdominal Exam GI & Abdominal Exam: Normal Bowel Sounds, Soft. absent: Tenderness - Rectal Exam Rectal Exam: Deferred - Exam Exam: NORMAL INSPECTION - Extremities Exam Extremities exam: Positive for: full ROM, pedal edema, tenderness, pedal pulses present. Negative for: calf tenderness, joint swelling, normal capillary refill, normal inspection Additional comments: right 5th toe ulcer with cellulitis no pus no malodor - Back Exam Back exam: NORMAL INSPECTION - Neurological Exam Neurological exam: Alert, CN II-XII Intact, Normal Gait, Oriented x3, Reflexes Normal - Psychiatric Exam Psychiatric exam: Normal Affect, Normal Mood - Skin Skin Exam: Dry, Erythema, Warm Results - Vital Signs Recent Vital Signs: Last Vital Signs Temp 98 F 11/27/18 23:05 Pulse 101 H 11/28/18 09:09 Resp 20 11/27/18 23:05 BP 122/88 11/28/18 09:09 Pulse Ox 95 11/28/18 00:04 - Labs Result Diagrams: 11/27/18 16:47 11/27/18 16:47 Labs: Laboratory Results - last 24 hr 11/27/18 11/27/18 11/27/18 16:47 16:47 16:47 WBC 4.5 L RBC 3.33 L Hgb 11.1 Hct 33.7 L MCV 101.4 H D MCH 33.3 H MCHC 32.8 L RDW 14.8 H Plt Count 220 MPV 7.7 Neut % (Auto) 44.7 L Lymph % (Auto) 41.1 H [place] % (Auto) 11.8 H Eos % (Auto) 1.8 Baso % (Auto) 0.6 Neut # (Auto) 2.0 Lymph # (Auto) 1.8 [place] # (Auto) 0.5 Eos # (Auto) 0.1 Baso # (Auto) 0.0 PT 12.2 INR 1.1 APTT 38.0 H Sodium 137 Potassium 4.0 Chloride 105 Carbon Dioxide 29 Anion Gap 8 L BUN 16 Creatinine 0.8 Est GFR ( Amer) > 60 Est GFR (Non-Af Amer) > 60 POC Glucose (mg/dL) Random Glucose 103 Calcium 9.1 Total Bilirubin 0.3 AST 27 ALT 30 Alkaline Phosphatase 75 Troponin I < 0.0120 Total Protein 6.2 L Albumin 3.5 Globulin 2.6 Albumin/Globulin Ratio 1.3 11/27/18 11/28/18 11/28/18 21:09 06:30 11:42 WBC RBC Hgb Hct MCV MCH MCHC RDW Plt Count MPV Neut % (Auto) Lymph % (Auto) [place] % (Auto) Eos % (Auto) Baso % (Auto) Neut # (Auto) Lymph # (Auto) [place] # (Auto) Eos # (Auto) Baso # (Auto) PT INR APTT Sodium Potassium Chloride Carbon Dioxide Anion Gap BUN Creatinine Est GFR ( Amer) Est GFR (Non-Af Amer) POC Glucose (mg/dL) 108 106 81 Random Glucose Calcium Total Bilirubin AST ALT Alkaline Phosphatase Troponin I Total Protein Albumin Globulin Albumin/Globulin Ratio Assessment & Plan (1) Chronic toe ulcer Status: Acute (2) Abscess Status: Acute - Assessment and Plan (Free Text) Assessment: elderly diabetic female with right 5th toe ulcer cultures from wound sent Consider vascular eval, MRI foot cont IV antibiotics as ordered
--- NOTE | 2018-11-28 15:24 | CP.PCM.HP ---
Present on Admission - Present on Admission Any Indicators Present on Admission: No Past Patient History - Infectious Disease Hx of Infectious Diseases: None - Past Medical History & Family History Past Medical History?: Yes - Past Social History Smoking Status: Never Smoked - CARDIAC Hx Hypercholesterolemia: Yes Hx Hypertension: Yes - PULMONARY Hx Pneumonia: Yes - NEUROLOGICAL Hx Neurological Disorder: No - HEENT Hx HEENT Problems: Yes Hx Cataracts: Yes - RENAL Hx Chronic Kidney Disease: No - ENDOCRINE/METABOLIC Hx Diabetes Mellitus Type 2: Yes - HEMATOLOGICAL/ONCOLOGICAL Hx Blood Disorders: No - INTEGUMENTARY Hx Dermatological Problems: No - MUSCULOSKELETAL/RHEUMATOLOGICAL Hx Arthritis: Yes - GASTROINTESTINAL Hx Gastritis: Yes - GENITOURINARY/GYNECOLOGICAL Hx Genitourinary Disorders: No - PSYCHIATRIC Hx Anxiety: Yes Hx Depression: Yes Hx Substance Use: No - SURGICAL HISTORY Hx Cholecystectomy: Yes Hx Coronary Stent: Yes - ANESTHESIA Hx Anesthesia: Yes Meds Allergies/Adverse Reactions: Allergies Allergy/AdvReac Type Severity Reaction Status Date / Time No Known Allergies Allergy Verified 11/27/18 16:12 Physical Exam - Constitutional Appears: Well - Head Exam Head Exam: ATRAUMATIC, NORMAL INSPECTION, NORMOCEPHALIC - Eye Exam Eye Exam: EOMI, Normal appearance, PERRL Pupil Exam: NORMAL ACCOMODATION, PERRL - ENT Exam ENT Exam: Mucous Membranes Moist, Normal Exam - Neck Exam Neck exam: Positive for: Normal Inspection - Respiratory Exam Respiratory Exam: Decreased Breath Sounds - Cardiovascular Exam Cardiovascular Exam: REGULAR RHYTHM, +S1, +S2 - GI/Abdominal Exam GI & Abdominal Exam: Diminished Bowel Sounds, Soft - Rectal Exam Rectal Exam: Deferred - Neurological Exam Neurological exam: Oriented x3 - Skin Additional comments: Bilateral LE focused exam: VASC: DP/PT pulses are palpable 2/4; Cap refill time: < 3 sec to all digits, Temp gradient: warm to cool from proximal to distal, diffuse localized non- pitting edema noted on the right dorsal 5th digit - appears to be improved from yesterday DERM: Small wound measuring approx 0.3 cm x 0.2 cm x 0.1 cm on dorsal aspect of the 5th digit PIPJ right foot, no active drainage, no malodor, no probe to bone, no undermining, no tunneling, no erythema NEURO: Protective sensation grossly intact ORTHO: mild pain on palpation of the PIPJ of the right foot 5th digit, no pain during ROM of the right foot 5th digit Results - Vital Signs Recent Vital Signs: Last Vital Signs Temp 98 F 11/27/18 23:05 Pulse 101 H 11/28/18 09:09 Resp 20 11/27/18 23:05 BP 122/88 11/28/18 09:09 Pulse Ox 95 11/28/18 00:04 - Labs Result Diagrams: 11/27/18 16:47 11/27/18 16:47 Labs: Laboratory Results - last 24 hr 11/27/18 11/27/18 11/27/18 16:47 16:47 16:47 WBC 4.5 L RBC 3.33 L Hgb 11.1 Hct 33.7 L MCV 101.4 H D MCH 33.3 H MCHC 32.8 L RDW 14.8 H Plt Count 220 MPV 7.7 Neut % (Auto) 44.7 L Lymph % (Auto) 41.1 H [place] % (Auto) 11.8 H Eos % (Auto) 1.8 Baso % (Auto) 0.6 Neut # (Auto) 2.0 Lymph # (Auto) 1.8 [place] # (Auto) 0.5 Eos # (Auto) 0.1 Baso # (Auto) 0.0 PT 12.2 INR 1.1 APTT 38.0 H Sodium 137 Potassium 4.0 Chloride 105 Carbon Dioxide 29 Anion Gap 8 L BUN 16 Creatinine 0.8 Est GFR ( Amer) > 60 Est GFR (Non-Af Amer) > 60 POC Glucose (mg/dL) Random Glucose 103 Calcium 9.1 Total Bilirubin 0.3 AST 27 ALT 30 Alkaline Phosphatase 75 Troponin I < 0.0120 Total Protein 6.2 L Albumin 3.5 Globulin 2.6 Albumin/Globulin Ratio 1.3 11/27/18 11/28/18 11/28/18 21:09 06:30 11:42 WBC RBC Hgb Hct MCV MCH MCHC RDW Plt Count MPV Neut % (Auto) Lymph % (Auto) [place] % (Auto) Eos % (Auto) Baso % (Auto) Neut # (Auto) Lymph # (Auto) [place] # (Auto) Eos # (Auto) Baso # (Auto) PT INR APTT Sodium Potassium Chloride Carbon Dioxide Anion Gap BUN Creatinine Est GFR ( Amer) Est GFR (Non-Af Amer) POC Glucose (mg/dL) 108 106 81 Random Glucose Calcium Total Bilirubin AST ALT Alkaline Phosphatase Troponin I Total Protein Albumin Globulin Albumin/Globulin Ratio Assessment & Plan - Assessment and Plan (Free Text) Plan: Discussed with the GI doctor no nausea no vomiting patient Refuses the EGD Patient wants to go home GI consult Home medication reconciliation's The monitor CBC CMP very closely Protonix folllo up with gi
[2018-11-28] MEDS: Vancomycin 1 gm/NS 200 ml 1 GM/200 ML BAG IVPB SCH (17:22)
[2018-11-28] MEDS: Latanoprost 2.5 ml Opht Soln OU SCH (21:44)
[2018-11-29] MEDS: Piperacill/Tazo 3.375gm in Dex 3.375 GM/50 ML BAG IVPB SCH ×4 (00:15→23:46)
[2018-11-29 00:26] VITALS: RESP 20
[2018-11-29] MEDS: Vancomycin 1 gm/NS 200 ml 1 GM/200 ML BAG IVPB SCH ×2 (05:07→17:42)
[2018-11-29] MEDS: (Novolog) Insulin Aspart, Recombinant 100 u/ml 10 ml vial SC SCH ×4 (08:13→22:07)
[2018-11-29] MEDS: Enoxaparin 40 mg Syringe SC SCH (09:25)
[2018-11-29] MEDS: Pantoprazole 40 mg EC Tab PO SCH (09:30)
--- NOTE | 2018-11-29 10:42 | CARD ---
APPROVED REPORT Date of service: 11/27/2018 EKG Measurement Heart [id number] <Conclusion> Normal sinus rhythm Minimal voltage criteria for LVH, may be normal variant Borderline ECG
--- NOTE | 2018-11-29 20:42 | CP.PCM.PN ---
Subjective - Date & Time of Evaluation Date of Evaluation: 11/29/18 - Subjective Subjective: patient examined today at bedside no nausea, no vomiting, no diarrhea, no dizziness, no fever, no shortness of breath Objective - Vital Signs/Intake and Output Vital Signs (last 24 hours): Temp Pulse Resp BP Pulse Ox 97.3 F L 84 20 127/72 94 L 11/29/18 16:00 11/29/18 16:00 11/29/18 16:00 11/29/18 16:00 11/29/18 16:00 - Medications Medications: Current Medications Alprazolam (Xanax) 0.5 mg PO TID [facility] Last Admin: 11/29/18 17:41 Dose: Not Given Aspirin (Aspirin Chewable) 81 mg PO DAILY [facility] Last Admin: 11/29/18 09:24 Dose: 81 mg Carvedilol (Coreg) 6.25 mg PO BID [facility] Last Admin: 11/29/18 17:42 Dose: 6.25 mg Enoxaparin Sodium (Lovenox) 40 mg SC DAILY [facility] Last Admin: 11/29/18 09:25 Dose: 40 mg Piperacillin Sod/Tazobactam Sod (Zosyn 3.375 Gm Iv Premix) 3.375 gm in 50 mls @ 100 mls/hr IVPB Q8H [facility]; Protocol Last Admin: 11/29/18 16:05 Dose: 100 mls/hr Vancomycin/Sodium Chloride (Vancomycin 1 Gm/Ns 200 Ml) 1 gm in 200 mls @ 133.333 mls/hr IVPB Q12H [facility]; Protocol Last Admin: 11/29/18 17:42 Dose: 133.333 mls/hr Insulin Aspart (Novolog) 0 unit SC ACHS [facility]; Protocol Last Admin: 11/29/18 17:35 Dose: Not Given Latanoprost (Xalatan Opht) 0 ml OU HS [facility] Last Admin: 11/28/18 21:44 Dose: 2.5 ml Losartan Potassium (Cozaar) 100 mg PO DAILY [facility] Last Admin: 11/29/18 09:24 Dose: 100 mg Metformin HCl (Glucophage) 500 mg PO BID [facility] Last Admin: 11/29/18 17:42 Dose: 500 mg Naphazoline HCl/Pheniramine Maleate (Naphcon-A Opht) 0 ml OU BID PRN PRN Reason: Itching / Pruritus Stop: 12/01/18 10:01 Pantoprazole Sodium (Protonix Ec Tab) 40 mg PO DAILY [facility] Last Admin: 11/29/18 09:30 Dose: 40 mg Rosuvastatin Calcium (Crestor) 20 mg PO HS [facility] Last Admin: 11/28/18 21:43 Dose: 20 mg Tramadol HCl (Ultram) 50 mg PO Q6H PRN PRN Reason: Pain - Labs Labs: 11/27/18 16:47 11/27/18 16:47 PT 12.2 SECONDS (9.7-12.2) 11/27/18 16:47 INR 1.1 11/27/18 16:47 APTT 38.0 SECONDS (21-34) H 11/27/18 16:47 - Constitutional Appears: Well - Head Exam Head Exam: ATRAUMATIC, NORMAL INSPECTION, NORMOCEPHALIC - Eye Exam Eye Exam: EOMI, Normal appearance, PERRL Pupil Exam: NORMAL ACCOMODATION, PERRL - ENT Exam ENT Exam: Mucous Membranes Moist, Normal Exam - Neck Exam Neck Exam: Full ROM, Normal Inspection. absent: Lymphadenopathy - Respiratory Exam Respiratory Exam: Decreased Breath Sounds - Cardiovascular Exam Cardiovascular Exam: REGULAR RHYTHM, +S1, +S2 - GI/Abdominal Exam GI & Abdominal Exam: Soft, Diminished Bowel Sounds - Rectal Exam Rectal Exam: Deferred - Extremities Exam Additional comments: Bilateral LE focused exam: VASC: DP/PT pulses are palpable 2/4; Cap refill time: < 3 sec to all digits, Temp gradient: warm to cool from proximal to distal, diffuse localized non- pitting edema noted on the right dorsal 5th digit - appears to be improved from yesterday DERM: Small wound measuring approx 0.3 cm x 0.2 cm x 0.1 cm on dorsal aspect of the 5th digit PIPJ right foot, no active drainage, no malodor, no probe to bone, no undermining, no tunneling, no erythema NEURO: Protective sensation grossly intact ORTHO: mild pain on palpation of the PIPJ of the right foot 5th digit, no pain during ROM of the right foot 5th digit - Neurological Exam Neurological Exam: Oriented x3 Assessment and Plan (1) Chronic toe ulcer Status: Acute (2) Abscess Status: Inactive (3) Anxiety Status: Acute (4) Bronchitis Status: Acute (5) Chest pain Status: Acute (6) Chest pain Status: Acute (7) Chronic fatigue and malaise Status: Acute (8) Colicky periumbilical abdominal pain Status: Acute (9) Dizziness Status: Acute (10) Earache Status: Acute (11) Elevated liver enzymes Status: Acute (12) Epigastric abdominal pain Status: Acute (13) Gastritis Status: Acute (14) Gastroesophageal reflux disease Status: Acute (15) Headache Status: Acute (16) Influenza-like illness Status: Acute (17) Keloid of skin Status: Acute (18) Lumbar radiculopathy Status: Acute (19) Multiple contusions Status: Acute (20) Myalgia Status: Acute (21) Nausea Status: Acute (22) Neuropathy Status: Acute (23) Post-nasal drip Status: Acute (24) Prophylactic measure Status: Acute (25) Recurrent angina status post percutaneous transluminal coronary angioplasty Status: Acute (26) Urinary tract infection Status: Acute (27) Uterine prolapse Status: Acute (28) Weakness Status: Acute (29) CAD (coronary artery disease) Status: Chronic (30) Chronic pain Status: Chronic (31) Coronary arteriosclerosis in [place] artery Status: Chronic (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
[2018-11-29] MEDS: Latanoprost 2.5 ml Opht Soln OU SCH (21:41)
[2018-11-30] MEDS: Vancomycin 1 gm/NS 200 ml 1 GM/200 ML BAG IVPB SCH ×2 (06:03→17:48)
[2018-11-30] MEDS: (Novolog) Insulin Aspart, Recombinant 100 u/ml 10 ml vial SC SCH ×4 (08:27→22:34)
[2018-11-30] MEDS: Piperacill/Tazo 3.375gm in Dex 3.375 GM/50 ML BAG IVPB SCH ×2 (08:55→16:10)
[2018-11-30] MEDS: Pantoprazole 40 mg EC Tab PO SCH (09:24)
[2018-11-30] MEDS: Enoxaparin 40 mg Syringe SC SCH (09:24)
--- NOTE | 2018-11-30 15:15 | CP.PCM.PN ---
Subjective - Date & Time of Evaluation Date of Evaluation: 11/30/18 Time of Evaluation: 08:00 - Subjective Subjective: awake and alert no new complaints interim events noted patient examined entries reviewed labs reviewed orders signed Objective - Vital Signs/Intake and Output Vital Signs (last 24 hours): Temp Pulse Resp BP Pulse Ox 98.4 F 99 H 20 137/82 98 11/29/18 23:33 11/30/18 09:28 11/29/18 23:33 11/30/18 09:28 11/29/18 23:33 - Medications Medications: Current Medications Alprazolam (Xanax) 0.5 mg PO TID [facility] Last Admin: 11/30/18 14:25 Dose: 0.5 mg Aspirin (Aspirin Chewable) 81 mg PO DAILY [facility] Last Admin: 11/30/18 09:24 Dose: 81 mg Carvedilol (Coreg) 6.25 mg PO BID [facility] Last Admin: 11/30/18 09:24 Dose: 6.25 mg Enoxaparin Sodium (Lovenox) 40 mg SC DAILY [facility] Last Admin: 11/30/18 09:24 Dose: 40 mg Piperacillin Sod/Tazobactam Sod (Zosyn 3.375 Gm Iv Premix) 3.375 gm in 50 mls @ 100 mls/hr IVPB Q8H [facility]; Protocol Last Admin: 11/30/18 08:55 Dose: 100 mls/hr Vancomycin/Sodium Chloride (Vancomycin 1 Gm/Ns 200 Ml) 1 gm in 200 mls @ 133.333 mls/hr IVPB Q12H [facility]; Protocol Last Admin: 11/30/18 06:03 Dose: 133.333 mls/hr Insulin Aspart (Novolog) 0 unit SC ACHS [facility]; Protocol Last Admin: 11/30/18 11:44 Dose: Not Given Latanoprost (Xalatan Opht) 0 ml OU HS [facility] Last Admin: 11/29/18 21:41 Dose: 2.5 ml Losartan Potassium (Cozaar) 100 mg PO DAILY [facility] Last Admin: 11/30/18 09:24 Dose: 100 mg Metformin HCl (Glucophage) 500 mg PO BID [facility] Last Admin: 11/30/18 09:24 Dose: 500 mg Naphazoline HCl/Pheniramine Maleate (Naphcon-A Opht) 0 ml OU BID PRN PRN Reason: Itching / Pruritus Stop: 12/01/18 10:01 Pantoprazole Sodium (Protonix Ec Tab) 40 mg PO DAILY [facility] Last Admin: 11/30/18 09:24 Dose: 40 mg Rosuvastatin Calcium (Crestor) 20 mg PO HS [facility] Last Admin: 11/29/18 21:41 Dose: 20 mg Tramadol HCl (Ultram) 50 mg PO Q6H PRN PRN Reason: Pain - Labs Labs: 11/27/18 16:47 11/27/18 16:47 PT 12.2 SECONDS (9.7-12.2) 11/27/18 16:47 INR 1.1 11/27/18 16:47 APTT 38.0 SECONDS (21-34) H 11/27/18 16:47 - Constitutional Appears: Non-toxic, No Acute Distress, Chronically Ill - Head Exam Head Exam: ATRAUMATIC, NORMAL INSPECTION, NORMOCEPHALIC - Eye Exam Eye Exam: EOMI, Normal appearance, PERRL Pupil Exam: NORMAL ACCOMODATION, PERRL - ENT Exam ENT Exam: Mucous Membranes Moist, Normal Exam - Neck Exam Neck Exam: Full ROM, Normal Inspection. absent: Lymphadenopathy - Respiratory Exam Respiratory Exam: Clear to Ausculation Bilateral, NORMAL BREATHING PATTERN - Cardiovascular Exam Cardiovascular Exam: REGULAR RHYTHM, +S1, +S2. absent: Murmur - GI/Abdominal Exam GI & Abdominal Exam: Soft, Normal Bowel Sounds. absent: Tenderness - Rectal Exam Rectal Exam: Deferred - Exam Exam: NORMAL INSPECTION - Extremities Exam Extremities Exam: Full ROM, Normal Capillary Refill, Pedal Edema, Tenderness. absent: Joint Swelling, Normal Inspection - Back Exam Back Exam: NORMAL INSPECTION - Neurological Exam Neurological Exam: Alert, Awake, CN II-XII Intact, Normal Gait, Oriented x3 - Psychiatric Exam Psychiatric exam: Normal Affect, Normal Mood - Skin Skin Exam: Dry, Intact, Normal Color, Warm Assessment and Plan (1) Chronic toe ulcer Status: Acute (2) Abscess Status: Inactive - Assessment and Plan (Free Text) Assessment: culturers so far neg await vascular eval ]cont IV e]rx and wound care consider arterial dopplers and MRI will check Vanco trough
--- NOTE | 2018-11-30 19:43 | CP.PCM.PN ---
Subjective - Date & Time of Evaluation Date of Evaluation: 11/30/18 Time of Evaluation: 09:50 - Subjective Subjective: No nausea No vomiting No fever Objective - Vital Signs/Intake and Output Vital Signs (last 24 hours): Temp Pulse Resp BP Pulse Ox 97.8 F 81 20 116/81 97 11/30/18 15:00 11/30/18 15:00 11/30/18 15:00 11/30/18 15:00 11/30/18 15:00 - Medications Medications: Current Medications Alprazolam (Xanax) 0.5 mg PO TID [facility] Last Admin: 11/30/18 19:37 Dose: Not Given Aspirin (Aspirin Chewable) 81 mg PO DAILY [facility] Last Admin: 11/30/18 09:24 Dose: 81 mg Carvedilol (Coreg) 6.25 mg PO BID [facility] Last Admin: 11/30/18 17:40 Dose: 6.25 mg Enoxaparin Sodium (Lovenox) 40 mg SC DAILY [facility] Last Admin: 11/30/18 09:24 Dose: 40 mg Piperacillin Sod/Tazobactam Sod (Zosyn 3.375 Gm Iv Premix) 3.375 gm in 50 mls @ 100 mls/hr IVPB Q8H [facility]; Protocol Last Admin: 11/30/18 16:10 Dose: 100 mls/hr Vancomycin/Sodium Chloride (Vancomycin 1 Gm/Ns 200 Ml) 1 gm in 200 mls @ 133.333 mls/hr IVPB Q12H [facility]; Protocol Last Admin: 11/30/18 17:48 Dose: 133.333 mls/hr Insulin Aspart (Novolog) 0 unit SC ACHS [facility]; Protocol Last Admin: 11/30/18 19:36 Dose: Not Given Latanoprost (Xalatan Opht) 0 ml OU HS [facility] Last Admin: 11/29/18 21:41 Dose: 2.5 ml Losartan Potassium (Cozaar) 100 mg PO DAILY [facility] Last Admin: 11/30/18 09:24 Dose: 100 mg Metformin HCl (Glucophage) 500 mg PO BID [facility] Last Admin: 11/30/18 17:40 Dose: 500 mg Naphazoline HCl/Pheniramine Maleate (Naphcon-A Opht) 0 ml OU BID PRN PRN Reason: Itching / Pruritus Stop: 04/29/19 10:01 Pantoprazole Sodium (Protonix Ec Tab) 40 mg PO DAILY [facility] Last Admin: 11/30/18 09:24 Dose: 40 mg Rosuvastatin Calcium (Crestor) 20 mg PO HS [facility] Last Admin: 11/29/18 21:41 Dose: 20 mg Tramadol HCl (Ultram) 50 mg PO Q6H PRN PRN Reason: Pain - Labs Labs: 11/27/18 16:47 11/27/18 16:47 PT 12.2 SECONDS (9.7-12.2) 11/27/18 16:47 INR 1.1 11/27/18 16:47 APTT 38.0 SECONDS (21-34) H 11/27/18 16:47 - Constitutional Appears: Well - Head Exam Head Exam: ATRAUMATIC, NORMAL INSPECTION, NORMOCEPHALIC - Eye Exam Eye Exam: EOMI, Normal appearance, PERRL Pupil Exam: NORMAL ACCOMODATION, PERRL - ENT Exam ENT Exam: Mucous Membranes Moist, Normal Exam - Neck Exam Neck Exam: Full ROM, Normal Inspection. absent: Lymphadenopathy - Respiratory Exam Respiratory Exam: Decreased Breath Sounds - Cardiovascular Exam Cardiovascular Exam: REGULAR RHYTHM, +S1, +S2 - GI/Abdominal Exam GI & Abdominal Exam: Soft, Diminished Bowel Sounds - Rectal Exam Rectal Exam: Deferred - Extremities Exam Additional comments: Bilateral LE focused exam: VASC: DP/PT pulses are palpable 2/4; Cap refill time: < 3 sec to all digits, Temp gradient: warm to cool from proximal to distal, diffuse localized non- pitting edema noted on the right dorsal 5th digit - appears to be improved from yesterday DERM: Small wound measuring approx 0.3 cm x 0.2 cm x 0.1 cm on dorsal aspect of the 5th digit PIPJ right foot, no active drainage, no malodor, no probe to bone, no undermining, no tunneling, no erythema NEURO: Protective sensation grossly intact ORTHO: mild pain on palpation of the PIPJ of the right foot 5th digit, no pain during ROM of the right foot 5th digit - Neurological Exam Neurological Exam: Oriented x3 Assessment and Plan - Assessment and Plan (Free Text) Plan: Care discussed with the patient's no family at the bedside Moderate to set high complexity of care Patient's right foot is in dressing Plan follow-up with Dr. Moo Diaz IV antibiotic Right foot x-ray revealed cortical erosion with periosteal reactions on the distal distal aspect of the fifth proximal phalanx concerning for osteomyelitis no soft tissue emphysema Follow-up with the wound cultures which is pending ID consult Vascular surgical follow-up Wound dressing done with H2 O2 and DSD If antibiotic will not work patient may need an amputation Patient's made aware about the issues plan discussed with patient labs reviewed vitals reviewed medications reviewed aspirin chewable coreg cozaar crestor glucophage lovenox naphcon-a opht novolog protonix ec tab ultram vancomycin xalatan opht xanax zosyn
[2018-11-30] MEDS: Latanoprost 2.5 ml Opht Soln OU SCH (21:55)
[2018-12-01] MEDS: Piperacill/Tazo 3.375gm in Dex 3.375 GM/50 ML BAG IVPB SCH (00:22)
[2018-12-01 01:40] VITALS: TEMP 98.4; O2SAT 96
[2018-12-01 06:32] LABS: ALB/GLOB RATIO 1.2 (1.0-2.1); ALBUMIN 3.3 g/dL (3.5-5.0); ALT/SGPT 23 U/L (9-52); AST/SGOT 24 U/L (14-36); BLOOD UREA NITROGEN 14 mg/dL (7-17); CALCIUM 9.1 mg/dl (8.6-10.4); GFR NON-AFRICAN AMERICAN > 60
[2018-12-01] MEDS: Vancomycin 1 gm/NS 200 ml 1 GM/200 ML BAG IVPB SCH (07:13)
[2018-12-01 07:17] LABS: BASO % 0.4 % (0.0-2.0); EOS # 0.1 K/uL (0.0-0.7); EOS % 1.9 % (0.0-4.0); HEMOGLOBIN 10.8 g/dL (11.0-16.0); LYMPH # 2.4 K/uL (1.0-4.3); LYMPH % 45.1 % (20.0-40.0); MEAN CELL VOLUME 100.2 fL (81.0-99.0); MEAN CORPUSCULAR HEMOGLOBIN 33.7 pg (27.0-31.0); MEAN CORPUSCULAR HGB CONC 33.7 g/dL (33.0-37.0); MEAN PLATELET VOLUME 8.2 fL (7.2-11.7); MONO # 0.6 K/uL (0.0-0.8); MONO % 10.5 % (0.0-10.0); NEUT # 2.2 K/uL (1.8-7.0); NEUT % 42.1 % (50.0-75.0); RBC 3.21 Mil/uL (3.80-5.20); RED CELL DISTRIBUTION WIDTH 14.8 % (11.5-14.5); WHITE BLOOD COUNT 5.3 K/uL (4.8-10.8)
[2018-12-01] MEDS: (Novolog) Insulin Aspart, Recombinant 100 u/ml 10 ml vial SC SCH ×2 (07:35→11:57)
[2018-12-01] MEDS: Enoxaparin 40 mg Syringe SC SCH (09:15)
[2018-12-01] MEDS: Pantoprazole 40 mg EC Tab PO SCH (09:15)
[2018-12-01 09:19] VITALS: BP 154/97; PULSE 78
--- NOTE | 2018-12-01 11:35 | CP.PCM.PN ---
Subjective - Date & Time of Evaluation Date of Evaluation: 12/01/18 Time of Evaluation: 11:35 - Subjective Subjective: Podiatry Progress Note: Dr. Raphael 78F seen and evaluated this AM for right foot 5th digit wound. NAD. No acute events overnight. Patient offers no new complaints to 5th digit wound; denies any pain to wound site. Denies n/v/f/d/c/sob/ferrari/cp. Objective - Vital Signs/Intake and Output Vital Signs (last 24 hours): Temp Pulse Resp BP Pulse Ox 98.4 F 78 20 154/97 H 96 12/01/18 08:00 12/01/18 09:18 12/01/18 08:00 12/01/18 09:18 12/01/18 08:00 - Medications Medications: Current Medications Alprazolam (Xanax) 0.5 mg PO TID [facility] Last Admin: 12/01/18 09:15 Dose: 0.5 mg Aspirin (Aspirin Chewable) 81 mg PO DAILY [facility] Last Admin: 12/01/18 09:15 Dose: 81 mg Carvedilol (Coreg) 6.25 mg PO BID [facility] Last Admin: 12/01/18 09:15 Dose: 6.25 mg Enoxaparin Sodium (Lovenox) 40 mg SC DAILY [facility] Last Admin: 12/01/18 09:15 Dose: 40 mg Vancomycin/Sodium Chloride (Vancomycin 1 Gm/Ns 200 Ml) 1 gm in 200 mls @ 133.333 mls/hr IVPB Q12H [facility]; Protocol Last Admin: 12/01/18 07:13 Dose: 133.333 mls/hr Insulin Aspart (Novolog) 0 unit SC ACHS [facility]; Protocol Last Admin: 12/01/18 07:35 Dose: Not Given Latanoprost (Xalatan Opht) 0 ml OU HS [facility] Last Admin: 11/30/18 21:55 Dose: 2.5 ml Losartan Potassium (Cozaar) 100 mg PO DAILY [facility] Last Admin: 12/01/18 09:15 Dose: 100 mg Metformin HCl (Glucophage) 500 mg PO BID [facility] Last Admin: 12/01/18 09:15 Dose: 500 mg Pantoprazole Sodium (Protonix Ec Tab) 40 mg PO DAILY [facility] Last Admin: 12/01/18 09:15 Dose: 40 mg Rosuvastatin Calcium (Crestor) 20 mg PO HS [facility] Last Admin: 11/30/18 21:55 Dose: 20 mg Tramadol HCl (Ultram) 50 mg PO Q6H PRN PRN Reason: Pain - Labs Labs: 12/01/18 06:16 12/01/18 06:16 PT 12.2 SECONDS (9.7-12.2) 11/27/18 16:47 INR 1.1 11/27/18 16:47 APTT 38.0 SECONDS (21-34) H 11/27/18 16:47 - Constitutional Appears: Non-toxic, No Acute Distress - Extremities Exam Additional comments: Bilateral LE focused exam: VASC: DP/PT pulses are palpable 2/4; Cap refill time: < 3 sec to all digits, Temp gradient: warm to cool from proximal to distal, diffuse localized non- pitting edema noted on the right dorsal 5th digit - appears to be improved from yesterday DERM: Small wound measuring approx 0.3 cm x 0.2 cm x 0.1 cm on dorsal aspect of the 5th digit PIPJ right foot - epithelializing, no active drainage, no malodor, no probe to bone, no undermining, no tunneling, no erythema NEURO: Protective sensation grossly intact ORTHO: mild pain on palpation of the PIPJ of the right foot 5th digit, no pain during ROM of the right foot 5th digit - Neurological Exam Neurological Exam: Alert, Awake, Oriented x3 - Psychiatric Exam Psychiatric exam: Normal Affect, Normal Mood Assessment and Plan - Assessment and Plan (Free Text) Assessment: 78F with right 5th digit wound Plan: Patient seen and evaluated Discussed plan with attending Dr. Raphael VSS, WBC WNL 5.3 Right foot x-rays: Cortical erosion with periosteal reaction on the distal la teral aspect of the 5th proximal phalanx concerning for OM; no soft tissue emphysema f/u wound cultures - No growth ID consult, Dr. Cleaning IV abx as per ID Vascular Consult, Dr. Ahn - recs appreciated Continue local wound care: peroxide cleanse, DSD Wound stable Stable for d/c per podiatry After discharge, patient to follow up with Dr. Raphael in office within 7 days Recommend d/c on PO abx x7 days
--- NOTE | 2018-12-01 12:27 | CP.PCM.PN ---
Subjective - Date & Time of Evaluation Date of Evaluation: 12/01/18 Time of Evaluation: 08:00 - Subjective Subjective: improving IV rx renewed Vanco levels ok Objective - Vital Signs/Intake and Output Vital Signs (last 24 hours): Temp Pulse Resp BP Pulse Ox 98.4 F 78 20 154/97 H 96 12/01/18 08:00 12/01/18 09:18 12/01/18 08:00 12/01/18 09:18 12/01/18 08:00 - Medications Medications: Current Medications Alprazolam (Xanax) 0.5 mg PO TID [facility] Last Admin: 12/01/18 09:15 Dose: 0.5 mg Aspirin (Aspirin Chewable) 81 mg PO DAILY [facility] Last Admin: 12/01/18 09:15 Dose: 81 mg Carvedilol (Coreg) 6.25 mg PO BID [facility] Last Admin: 12/01/18 09:15 Dose: 6.25 mg Enoxaparin Sodium (Lovenox) 40 mg SC DAILY [facility] Last Admin: 12/01/18 09:15 Dose: 40 mg Vancomycin/Sodium Chloride (Vancomycin 1 Gm/Ns 200 Ml) 1 gm in 200 mls @ 13 3.333 mls/hr IVPB Q12H [facility]; Protocol Last Admin: 12/01/18 07:13 Dose: 133.333 mls/hr Insulin Aspart (Novolog) 0 unit SC ACHS [facility]; Protocol Last Admin: 12/01/18 07:35 Dose: Not Given Latanoprost (Xalatan Opht) 0 ml OU HS [facility] Last Admin: 11/30/18 21:55 Dose: 2.5 ml Losartan Potassium (Cozaar) 100 mg PO DAILY [facility] Last Admin: 12/01/18 09:15 Dose: 100 mg Metformin HCl (Glucophage) 500 mg PO BID [facility] Last Admin: 12/01/18 09:15 Dose: 500 mg Pantoprazole Sodium (Protonix Ec Tab) 40 mg PO DAILY [facility] Last Admin: 12/01/18 09:15 Dose: 40 mg Rosuvastatin Calcium (Crestor) 20 mg PO HS [facility] Last Admin: 11/30/18 21:55 Dose: 20 mg Tramadol HCl (Ultram) 50 mg PO Q6H PRN PRN Reason: Pain - Labs Labs: 12/01/18 06:16 12/01/18 06:16 PT 12.2 SECONDS (9.7-12.2) 11/27/18 16:47 INR 1.1 11/27/18 16:47 APTT 38.0 SECONDS (21-34) H 11/27/18 16:47 - Constitutional Appears: Non-toxic, Chronically Ill - Head Exam Head Exam: NORMOCEPHALIC - Eye Exam Eye Exam: absent: Scleral icterus - ENT Exam ENT Exam: Mucous Membranes Dry - Neck Exam Neck Exam: absent: Lymphadenopathy - Respiratory Exam Respiratory Exam: Decreased Breath Sounds - Cardiovascular Exam Cardiovascular Exam: REGULAR RHYTHM Assessment and Plan (1) Chronic toe ulcer Status: Acute (2) Abscess Status: Inactive - Assessment and Plan (Free Text) Assessment: cont rx follow as out pt
--- NOTE | 2018-12-01 13:26 | CP.PCM.PN ---
Subjective - Date & Time of Evaluation Date of Evaluation: 12/01/18 Time of Evaluation: 13:26 - Subjective Subjective: PATIENT SEEN AND EXAMINED AT THE BEDSIDE Objective - Vital Signs/Intake and Output Vital Signs (last 24 hours): Temp Pulse Resp BP Pulse Ox 98.4 F 78 20 154/97 H 96 12/01/18 08:00 12/01/18 09:18 12/01/18 08:00 12/01/18 09:18 12/01/18 08:00 - Medications Medications: Current Medications Alprazolam (Xanax) 0.5 mg PO TID [facility] Last Admin: 12/01/18 13:12 Dose: 0.5 mg Aspirin (Aspirin Chewable) 81 mg PO DAILY [facility] Last Admin: 12/01/18 09:15 Dose: 81 mg Carvedilol (Coreg) 6.25 mg PO BID [facility] Last Admin: 12/01/18 09:15 Dose: 6.25 mg Enoxaparin Sodium (Lovenox) 40 mg SC DAILY [facility] Last Admin: 12/01/18 09:15 Dose: 40 mg Vancomycin/Sodium Chloride (Vancomycin 1 Gm/Ns 200 Ml) 1 gm in 200 mls @ 13 3.333 mls/hr IVPB Q12H [facility]; Protocol Last Admin: 12/01/18 07:13 Dose: 133.333 mls/hr Insulin Aspart (Novolog) 0 unit SC ACHS [facility]; Protocol Last Admin: 12/01/18 07:35 Dose: Not Given Latanoprost (Xalatan Opht) 0 ml OU HS [facility] Last Admin: 11/30/18 21:55 Dose: 2.5 ml Losartan Potassium (Cozaar) 100 mg PO DAILY [facility] Last Admin: 12/01/18 09:15 Dose: 100 mg Metformin HCl (Glucophage) 500 mg PO BID [facility] Last Admin: 12/01/18 09:15 Dose: 500 mg Pantoprazole Sodium (Protonix Ec Tab) 40 mg PO DAILY [facility] Last Admin: 12/01/18 09:15 Dose: 40 mg Rosuvastatin Calcium (Crestor) 20 mg PO HS [facility] Last Admin: 11/30/18 21:55 Dose: 20 mg Tramadol HCl (Ultram) 50 mg PO Q6H PRN PRN Reason: Pain - Labs Labs: 12/01/18 06:16 04/29/19 06:16 PT 12.2 SECONDS (9.7-12.2) 11/27/18 16:47 INR 1.1 11/27/18 16:47 APTT 38.0 SECONDS (21-34) H 11/27/18 16:47 Assessment and Plan - Assessment and Plan (Free Text) Assessment: FOLLOW UP WITH DR Greta MENON IN HIS OFFICE FOLLOW UP WITH DR DAVE IN HIS OFFICE [facility] HOME MEDICATION NEW PRESCRIPTION GIVEN AUGMENTIN PO Q12H FOR 5 DAYS ACTIVITY TOLERATED CALL DR Greta MENON OR GO TO THE EMERGENCY ROOM IF SYMPTOM RETURN OR WORSENING
--- NOTE | 2018-12-01 17:05 | CP.PCM.DIS ---
Provider - Provider Date of Admission: 11/29/18 13:02 Attending physician: Go Rome MD Consults: 11/27/18 17:49 Podiatry Consult Routine Comment: R 5th toe Consulting Provider: Mann Raphael Consulting Physician: Mann Raphael Reason for Consult: R 5th toe 11/27/18 18:40 Infectious Disease Consult Routine Comment: Consulting Provider: Diego Cleaning Consulting Physician: Diego Cleaning Reason for Consult: right 5th toe infection/Wound 11/27/18 21:21 Physician Consult Routine Comment: R foot toe ulcer Consulting Provider: Bud Ahn Jr. Consulting Physician: Bud Ahn Jr. Reason for Consult: R foot toe ulcer Hospital Course - Lab Results Lab Results: Micro Results 11/27/18 17:25 Blood Blood Culture - Preliminary NO GROWTH AFTER 3 DAYS 11/27/18 17:00 Blood Blood Culture - Preliminary NO GROWTH AFTER 3 DAYS 11/27/18 18:19 Foot - Right Gram Stain - Final 11/27/18 18:19 Foot - Right Wound Culture - Final No growth. Most Recent Lab Values WBC 5.3 K/uL (4.8-10.8) 12/01/18 06:16 RBC 3.21 Mil/uL (3.80-5.20) L 12/01/18 06:16 Hgb 10.8 g/dL (11.0-16.0) L 12/01/18 06:16 Hct 32.2 % (34.0-47.0) L 12/01/18 06:16 MCV 100.2 fL (81.0-99.0) H 12/01/18 06:16 MCH 33.7 pg (27.0-31.0) H 12/01/18 06:16 MCHC 33.7 g/dL (33.0-37.0) 12/01/18 06:16 RDW 14.8 % (11.5-14.5) H 12/01/18 06:16 Plt Count 220 K/uL (130-400) 12/01/18 06:16 MPV 8.2 fL (7.2-11.7) 12/01/18 06:16 Neut % (Auto) 42.1 % (50.0-75.0) L 12/01/18 06:16 Lymph % (Auto) 45.1 % (20.0-40.0) H 12/01/18 06:16 Harvey % (Auto) 10.5 % (0.0-10.0) H 12/01/18 06:16 Eos % (Auto) 1.9 % (0.0-4.0) 12/01/18 06:16 Baso % (Auto) 0.4 % (0.0-2.0) 12/01/18 06:16 Neut # (Auto) 2.2 K/uL (1.8-7.0) 12/01/18 06:16 Lymph # (Auto) 2.4 K/uL (1.0-4.3) 12/01/18 06:16 Harvey # (Auto) 0.6 K/uL (0.0-0.8) 12/01/18 06:16 Eos # (Auto) 0.1 K/uL (0.0-0.7) 12/01/18 06:16 Baso # (Auto) 0.0 K/uL (0.0-0.2) 12/01/18 06:16 ESR 5 mm/hr (0-20) 11/29/18 07:29 PT 12.2 SECONDS (9.7-12.2) 11/27/18 16:47 INR 1.1 11/27/18 16:47 APTT 38.0 SECONDS (21-34) H 11/27/18 16:47 Sodium 139 mmol/L (132-148) 12/01/18 06:16 Potassium 4.0 mmol/L (3.6-5.2) 12/01/18 06:16 Chloride 106 mmol/L (98-107) 12/01/18 06:16 Carbon Dioxide 27 mmol/L (22-30) 12/01/18 06:16 Anion Gap 10 (10-20) 12/01/18 06:16 BUN 14 mg/dL (7-17) 12/01/18 06:16 Creatinine 0.9 mg/dL (0.7-1.2) 12/01/18 06:16 Est GFR ( Amer) > 60 12/01/18 06:16 Est GFR (Non-Af Amer) > 60 12/01/18 06:16 POC Glucose (mg/dL) 130 mg/dL (65-110) H 12/01/18 11:28 Random Glucose 90 mg/dL (65-105) 12/01/18 06:16 Calcium 9.1 mg/dl (8.6-10.4) 12/01/18 06:16 Phosphorus 3.2 mg/dL (2.5-4.5) 12/01/18 06:16 Magnesium 1.6 mg/dL (1.6-2.3) 12/01/18 06:16 Total Bilirubin 0.4 mg/dL (0.2-1.3) 12/01/18 06:16 AST 24 U/L (14-36) 12/01/18 06:16 ALT 23 U/L (9-52) 12/01/18 06:16 Alkaline Phosphatase 65 U/L (38-126) 12/01/18 06:16 Troponin I < 0.0120 ng/mL (0.00-0.120) 11/27/18 16:47 Total Protein 6.1 g/dL (6.3-8.3) L 12/01/18 06:16 Albumin 3.3 g/dL (3.5-5.0) L 12/01/18 06:16 Globulin 2.8 gm/dL (2.2-3.9) 12/01/18 06:16 Albumin/Globulin Ratio 1.2 (1.0-2.1) 12/01/18 06:16 Vancomycin Trough 14.1 ug/mL (5.0-10.0) H 12/01/18 06:16 Discharge Exam - Head Exam Head Exam: ATRAUMATIC, NORMAL INSPECTION, NORMOCEPHALIC Discharge Plan - Discharge Medications Prescriptions: Amoxicillin/Clavulanate [Augmentin 875 MG-125 MG] 1 tab PO Q12H 5 Days tab - Follow Up Plan Condition: GOOD Disposition: HOME/ ROUTINE Instructions: Diabetes and Infections, Amoxicillin and Clavulanate, Foot Care for Diabetics Additional Instructions: FOLLOW UP WITH DR Greta ROME IN HIS OFFICE FOLLOW UP WITH DR DAVE IN HIS OFFICE CONTINUE HOME MEDICATION NEW PRESCRIPTION GIVEN AUGMENTIN PO Q12H FOR 5 DAYS ACTIVITY TOLERATED CALL DR Greta ROME OR GO TO THE EMERGENCY ROOM IF SYMPTOM RETURN OR WORSENING Referrals: Mann Raphael DPM [Doctor Podiatric Medicine] - Kierra Rome MD [Staff Provider] -
[2018-12-01 17:49] LABS: URINE BACTERIA RARE (<OCC); URINE BILIRUBIN NEGATIVE (NEGATIVE); URINE BLOOD NEGATIVE (NEGATIVE); URINE CLARITY Clear (Clear); URINE COLOR Straw (YELLOW); URINE GLUCOSE (UA) NORMAL (Normal); URINE LEUKOCYTE ESTERASE NEG Leu/uL (Negative); URINE PROTEIN NEGATIVE (NEGATIVE); URINE UROBILINOGEN NORMAL mg/dL (0.2-1.0)
== END 2018-12-01 16:00 | disposition home or self-care (01) | DRG 638 ==
LOC: C.ER 15:56 → C.9E 17:49 → C.5S 18:14 → OBSVTOIN 11-29 13:02
PROVIDERS: ADMIT Internal Medicine Nephrology; ATTEND Internal Medicine Nephrology
DX: E11.621 Type 2 diabetes mellitus with foot ulcer (principal); N39.0 Urinary tract infection, site not specified; E78.5 Hyperlipidemia, unspecified; F41.9 Anxiety disorder, unspecified; G89.29 Other chronic pain; I10 Essential (primary) hypertension; I25.119 Atherosclerotic heart disease of native coronary artery with unspecified angina pectoris; J40 Bronchitis, not specified as acute or chronic; K29.70 Gastritis, unspecified, without bleeding; L97.519 Non-pressure chronic ulcer of other part of right foot with unspecified severity; M54.16 Radiculopathy, lumbar region; Z95.5 Presence of coronary angioplasty implant and graft